=== PATIENT | female | born 1990 | race Caucasian/White ===

== ENCOUNTER 2025-03-06 07:13 | Inpatient (IN) | payer OTHER, SELFPAY ==
[2025-03-06] VITALS (44 sets, daily range): BP systolic 118–169; BP diastolic 73–99; PULSE 72–103; RESP 16–18; TEMP 36.4–37.2; O2SAT 95–100; BMI 29.5
--- OUTSIDE RECORDS SUMMARY | 2025-03-06 07:20 | XMS RPT_ITS | CCD ---
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 Address: [address] [place] [address] Performed By: #### 5 7021-8 #### [facility] CLIA [id number] [address] [place] [address] [place] Monocytes/100 WBC (Bld) 5.3 % Normal [facility] Comment on above: Order Comment: Speci men Type: BLOOD SPECIMEN Ordering Facility: [facility] Address: [address] [place] [address] Performed By: #### 5 7021-8 #### [facility] CLIA [id number] [address] [place] [address] [place] Neutrophils (Bld) [#/Vol] 4.48 10*3/uL Normal 1.45-7.50 [facility] Comment on above: Order Comment: Speci men Type: BLOOD SPECIMEN Ordering Facility: [facility] Address: [address] [place] [address] Performed By: #### 5 7021-8 #### [facility] CLIA [id number] [address] [place] [address] [place] Neutrophils/100 WBC (Bld) 76.1 % Normal [facility] Comment on above: Order Comment: Speci men Type: BLOOD SPECIMEN Ordering Facility: [facility] Address: [address] [place] [address] Performed By: #### 5 7021-8 #### [facility] CLIA [id number] [address] [place] [address] [place] Nucleated RBC (Bld) [#/Vol] 10*3/uL Normal <0.01 [facility] Comment on above: Order Comment: Speci men Type: BLOOD SPECIMEN Ordering Facility: [facility] Address: [address] [place] [address] Performed By: #### 5 7021-8 #### [facility] CLIA [id number] [address] [place] [address] [place] Nucleated RBC/100 WBC (Bld) [Ratio] 0.0 /100 WBC Normal [facility] Comment on above: Order Comment: Speci men Type: BLOOD SPECIMEN Ordering Facility: [facility] Address: [address] [place] [address] Performed By: #### 5 7021-8 #### [facility] CLIA [id number] [address] [place] [address] [place] Platelet mean volume (Bld) [Entitic vol] 8.8 fL Low 9.0-12.7 [facility] Comment on above: Order Comment: Speci men Type: BLOOD SPECIMEN Ordering Facility: [facility] Address: [address] [place] [address] Performed By: #### 5 7021-8 #### [facility] CLIA [id number] [address] [place] [address] [place] Platelets (Bld) [#/Vol] 182 10*3/uL Normal 150-400 [facility] Comment on above: Order Comment: Speci men Type: BLOOD SPECIMEN Ordering Facility: [facility] Address: [address] [place] [address] Performed By: #### 5 7021-8 #### [facility] CLIA [id number] [address] [place] [address] [place] RBC (Bld) [#/Vol] 3.70 10*6/uL Low 3.90-5.20 [facility] Comment on above: Order Comment: Speci men Type: BLOOD SPECIMEN Ordering Facility: [facility] Address: [address] [place] [address] Performed By: #### 5 7021-8 #### [facility] CLIA [id number] [address] [place] [address] [place] WBC (Bld) [#/Vol] 5.89 10*3/uL Normal 3.70-11.00 [facility] Comment on above: Order Comment: Speci men Type: BLOOD SPECIMEN Ordering Facility: [facility] Address: [address] [place] [address] Performed By: #### 5 7021-8 #### [facility] CLIA [id number] [address] [place] [address] [place] GESTATIONAL GLUCOSE SCREEN, 1-HOUR, 50 GRAM, NON-FASTINGon 12-19-2024 Glucose [Mass/Vol] 90 mg/dL Normal 74-134 [facility] Comment on above: Order Comment: Speci men Type: BLOOD SPECIMEN Ordering Facility: [facility] Address: [address] [place] [address] Result Comment: Amer [place] Congress of Obstetricians and Gynecologists (Bennie/Wilfredo) guidelines state a gestational diabetes mellitus positive screen is made, in women not previously diagnosed with overt diabetes, when the 1 hr plasma glucose level is equal to or above 140 mg/dL. [facility] C2 Tactical Analysis Technician and [facility] [place] recommends a 135 mg/dL cutoff. Performed By: #### G LTGST #### [facility] CLIA [id number] [address] [place], [place] [address] [place] Reagin and Treponema pallidu m IgG and IgM [Interp]on 12-19-2024 T. pallidum IgG+IgM IA Ql (S) Non-Reactive Normal Nonreactive [facility] Comment on above: Order Comment: Speci men Type: BLOOD SPECIMEN Ordering Facility: [facility] Address: [address] [place] [address] Performed By: #### 3 1201-7, 5195-3, 96270-2 #### [facility] CLIA [id number] [address] [place] [address] [place] Reagin+T pallidum IgG+IgM Se rPl-Impon 12-19-2024 Reagin and Treponema pallidum IgG and IgM [Interp] Cannot exclude recent Treponemal infection if specimen collected within 7-10 days after appearance of suspect lesions or 2-3 weeks after an exposure. Clinical correlation is required. Normal [facility] Comment on above: Order Comment: Speci men Type: BLOOD SPECIMEN Ordering Facility: [facility] Address: [address] [place] [address] Performed By: #### 3 1201-7, 5195-3, 33141-4 #### [facility] CLIA [id number] [address] [place] [address] [place] Bacteria Ur Culton 5 Bacteria identified Cx Nom (U) ORGANISM ID: 1 50,000-<100,000 CFU/ml Normal urogenital nick Normal [facility] Comment on above: Performed By: #### 3 1201-7, 5195-3, 90517-1 #### [facility] CLIA [id number] [address] [place] [address] [place] C. trachomatis+N. gonorrhoea e DNA LYNETTE+probe Ql (Unsp spec)on 11-06-2024 C. trachomatis rRNA LYNETTE+probe Ql (Unsp spec) Not detected Normal Not detected [facility] Comment on above: Order Comment: Speci men Type: SWAB Ordering Facility: [facility] Address: [address] [place] [address] Performed By: #### 3 6902-5, TRVAMP #### [facility] CLIA [id number] [address] [place] [address] [place] N. gonorrhoeae rRNA LYNETTE+probe Ql (Unsp spec) Not detected Normal Not detected [facility] Comment on above: Order Comment: Speci men Type: SWAB Ordering Facility: [facility] Address: [address] [place] [address] Performed By: #### 3 6902-5, TRVAMP #### [facility] CLIA [id number] [address] [place] [address] [place] CBC W Auto Differential pane l (Bld)on 11-06-2024 Basophils (Bld) [#/Vol] 10*3/uL Normal <0.11 [facility] Comment on above: Order Comment: Speci men Type: BLOOD SPECIMEN Ordering Facility: [facility] Address: [address] [place] [address] Performed By: #### 5 7021-8 #### [facility] CLIA [id number] [address] [place] [address] [place] Basophils/100 WBC (Bld) 0.4 % Normal [facility] Comment on above: Order Comment: Speci men Type: BLOOD SPECIMEN Ordering Facility: [facility] Address: [address] [place] [address] Performed By: #### 5 7021-8 #### [facility] CLIA [id number] [address] [place] [address] [place] Differential cell count method Nom (Bld) Auto Normal [facility] Comment on above: Order Comment: Speci men Type: BLOOD SPECIMEN Ordering Facility: [facility] Address: [address] [place] [address] Performed By: #### 5 7021-8 #### [facility] CLIA [id number] [address] [place] [address] [place] Eosinophils (Bld) [#/Vol] 0.04 10*3/uL Normal <0.46 [facility] Comment on above: Order Comment: Speci men Type: BLOOD SPECIMEN Ordering Facility: [facility] Address: [address] [place] [address] Performed By: #### 5 7021-8 #### [facility] CLIA [id number] [address] [place] [address] [place] Eosinophils/100 WBC (Bld) 0.7 % Normal [facility] Comment on above: Order Comment: Speci men Type: BLOOD SPECIMEN Ordering Facility: [facility] Address: [address] [place] [address] Performed By: #### 5 7021-8 #### [facility] CLIA [id number] [address] [place] [address] [place] Erythrocyte distribution width (RBC) [Ratio] 12.6 % Normal 11.5-15.0 [facility] Comment on above: Order Comment: Speci men Type: BLOOD SPECIMEN Ordering Facility: [facility] Address: [address] [place] [address] Performed By: #### 5 7021-8 #### [facility] CLIA [id number] [address] [place] [address] [place] Hematocrit (Bld) [Volume fraction] 39.9 % Normal 36.0-46.0 [facility] Comment on above: Order Comment: Speci men Type: BLOOD SPECIMEN Ordering Facility: [facility] Address: [address] [place] [address] Performed By: #### 5 7021-8 #### [facility] CLIA [id number] [address] [place] [address] [place] Hemoglobin (Bld) [Mass/Vol] 13.5 g/dL Normal 11.5-15.5 [facility] Comment on above: Order Comment: Speci men Type: BLOOD SPECIMEN Ordering Facility: [facility] Address: [address] [place] [address] Performed By: #### 5 7021-8 #### [facility] CLIA [id number] [address] [place] [address] [place] Immature granulocytes (Bld) [#/Vol] 10*3/uL Normal <0.10 [facility] Comment on above: Order Comment: Speci men Type: BLOOD SPECIMEN Ordering Facility: [facility] Address: [address] [place] [address] Performed By: #### 5 7021-8 #### [facility] CLIA [id number] [address] [place] [address] [place] Immature granulocytes/100 WBC (Bld) 0.4 % Normal [facility] Comment on above: Order Comment: Speci men Type: BLOOD SPECIMEN Ordering Facility: [facility] Address: [address] [place] [address] Performed By: #### 5 7021-8 #### [facility] CLIA [id number] [address] [place] [address] [place] Lymphocytes (Bld) [#/Vol] 1.13 10*3/uL Normal 1.00-4.00 [facility] Comment on above: Order Comment: Speci men Type: BLOOD SPECIMEN Ordering Facility: [facility] Address: [address] [place] [address] Performed By: #### 5 7021-8 #### [facility] CLIA [id number] [address] [place] [address] [place] Lymphocytes/100 WBC (Bld) 21.0 % Normal [facility] Comment on above: Order Comment: Speci men Type: BLOOD SPECIMEN Ordering Facility: [facility] Address: [address] [place] [address] Performed By: #### 5 7021-8 #### [facility] CLIA [id number] [address] [place] [address] [place] MCH (RBC) [Entitic mass] 30.1 pg Normal 26.0-34.0 [facility] Comment on above: Order Comment: Speci men Type: BLOOD SPECIMEN Ordering Facility: [facility] Address: [address] [place] [address] Performed By: #### 5 7021-8 #### [facility] CLIA [id number] [address] [place] [address] [place] MCHC (RBC) [Mass/Vol] 33.8 g/dL Normal 30.5-36.0 [facility] Comment on above: Order Comment: Speci men Type: BLOOD SPECIMEN Ordering Facility: [facility] Address: [address] [place] [address] Performed By: #### 5 7021-8 #### [facility] CLIA [id number] [address] [place] [address] [place] MCV (RBC) [Entitic vol] 89.1 fL Normal 80.0-100.0 [facility] Comment on above: Order Comment: Speci men Type: BLOOD SPECIMEN Ordering Facility: [facility] Address: [address] [place], [place] [address] Performed By: #### 5 7021-8 #### [id number] [address] [place] [address] [place] Monocytes (Bld) [#/Vol] 0.33 10*3/uL Normal <0.87 [facility] Comment on above: Order Comment: Speci men Type: BLOOD SPECIMEN Ordering Facility: [facility] Address: [address] [place] [address] Performed By: #### 5 7021-8 #### [facility] CLIA [id number] [address] [place] [address] [place] Monocytes/100 WBC (Bld) 6.1 % Normal [facility] Comment on above: Order Comment: Speci men Type: BLOOD SPECIMEN Ordering Facility: [facility] Address: [address] [place] [address] Performed By: #### 5 7021-8 #### [facility] CLIA [id number] [address] [place] [address] [place] Neutrophils (Bld) [#/Vol] 3.84 10*3/uL Normal 1.45-7.50 [facility] Comment on above: Order Comment: Speci men Type: BLOOD SPECIMEN Ordering Facility: [facility] Address: [address] [place] [address] Performed By: #### 5 7021-8 #### [facility] CLIA [id number] [address] [place] [address] [place] Neutrophils/100 WBC (Bld) 71.4 % Normal [facility] Comment on above: Order Comment: Speci men Type: BLOOD SPECIMEN Ordering Facility: [facility] Address: [address] [place] [address] Performed By: #### 5 7021-8 #### [facility] CLIA [id number] [address] [place] [address] [place] Nucleated RBC (Bld) [#/Vol] 10*3/uL Normal <0.01 [facility] Comment on above: Order Comment: Speci men Type: BLOOD SPECIMEN Ordering Facility: [facility] Address: [address] [place] [address] Performed By: #### 5 7021-8 #### [facility] CLIA [id number] [address] [place] [address] [place] Nucleated RBC/100 WBC (Bld) [Ratio] 0.0 /100 WBC Normal [facility] Comment on above: Order Comment: Speci men Type: BLOOD SPECIMEN Ordering Facility: [facility] Address: [address] [place] [address] Performed By: #### 5 7021-8 #### [facility] CLIA [id number] [address] [place] [address] [place] Platelet mean volume (Bld) [Entitic vol] 8.8 fL Low 9.0-12.7 [facility] Comment on above: Order Comment: Speci men Type: BLOOD SPECIMEN Ordering Facility: [facility] Address: [address] [place] [address] Performed By: #### 5 7021-8 #### [facility] CLIA [id number] [address] [place] [address] [place] Platelets (Bld) [#/Vol] 219 10*3/uL Normal 150-400 [facility] Comment on above: Order Comment: Speci men Type: BLOOD SPECIMEN Ordering Facility: [facility] Address: [address] [place] [address] Performed By: #### 5 7021-8 #### [facility] CLIA [id number] [address] [place] [address] [place] RBC (Bld) [#/Vol] 4.48 10*6/uL Normal 3.90-5.20 [facility] Comment on above: Order Comment: Speci men Type: BLOOD SPECIMEN Ordering Facility: [facility] Address: [address] [place] [address] Performed By: #### 5 7021-8 #### [facility] CLIA [id number] [address] [place] [address] [place] WBC (Bld) [#/Vol] 5.38 10*3/uL Normal 3.70-11.00 [facility] Comment on above: Order Comment: Speci men Type: BLOOD SPECIMEN Ordering Facility: [facility] Address: [address] [place] [address] Performed By: #### 5 7021-8 #### [facility] CLIA [id number] [address] [place] [address] [place] HBV surface Ag Ser Qlon 10-26 HBV surface Ag Ql (S) Negative Normal Negative [facility] Comment on above: Order Comment: Speci men Type: BLOOD SPECIMEN Ordering Facility: [facility] Address: [address] [place] [address] Performed By: #### 3 1201-7, 5195-3, 84453-3 #### [facility] CLIA [id number] [address] [place] [address] [place] HCV Ab Ser Qlon 11-06-2024 HCV Ab Ql (S) Negative Normal Negative [facility] Comment on above: Order Comment: Speci men Type: BLOOD SPECIMEN Ordering Facility: [facility] Address: [address] [place] [address] Result Comment: The result suggests no evidence of infection with Hepatitis C virus. Should recent infection be suspected, repeat testing may be considered 4-6 weeks after this draw. Performed By: #### 3 1201-7, 5195-3, 99117-9 #### [facility] CLIA [id number] [address] [place] [address] [place] HIV 1+2 Ab IA Qlon HIV 1 and 2 Ab IA.rapid Nom (S/P/Bld) Normal [facility] Comment on above: Order Comment: Speci men Type: BLOOD SPECIMEN Ordering Facility: [facility] Address: [address] [place] [address] Result Comment: Test not indicated. Performed By: #### 3 1201-7, 5195-3, 50681-7 #### [facility] CLIA [id number] [address] [place] [address] [place] HIV 1+2 Ab+HIV1 p24 Ag IA Ql Non-Reactive Normal Nonreactive [facility] Comment on above: Order Comment: Speci men Type: BLOOD SPECIMEN Ordering Facility: [facility] Address: [address] [place] [address] Performed By: #### 3 1201-7, 5195-3, 39825-5 #### [facility] CLIA [id number] [address] [place] [address] [place] HIV immunoassay testing algorithm interpretation (S/P/Bld) [Interp] Normal [facility] Comment on above: Order Comment: Speci men Type: BLOOD SPECIMEN Ordering Facility: [facility] Address: [address] [place] [address] Result Comment: No e vidence of HIV-1 or HIV-2 infection. Should recent infection be suspected, repeat testing may be considered 2-3 weeks after this draw. [place] Rev. Code 3701.243(E): This information has been disclosed to you from confidential records protected from disclosure by state law. You shall make no further disclosure of this information without the specific, written, and informed release of the individual to whom it pertains or as otherwise permitted by state law. A general authorization for the release of medical or other information is not sufficient for the purpose of the release of HIV test results or diagnoses. Performed By: #### 3 1201-7, 5195-3, 23740-3 #### [facility] CLIA [id number] [address] [place] [address] [place] HbA1c (Bld)on 11-06-2024 Average glucose Estimated from glycated hemoglobin (Bld) [Mass/Vol] 97 mg/dL [facility] Comment on above: eAG: (Estimated aver age glucose) is a calculated value from HgbA1c and is credit resolution representative of the average blood glucose level in the last 2-3 month period. HbA1c (Bld) [Mass fraction] 5 % 4.3 - 5.6 % [facility] Comment on above: [place] Diabetes [employer] sociation guidelines indicate that patients with HgbA1c in the range 5.7-6.4% are at increased risk for development of diabetes, and intervention by lifestyle modification may be beneficial. HgbA1c greater or equal to 6.5% is considered diagnostic of diabetes. [facility] Average glucose Estimated from glycated hemoglobin (Bld) [Mass/Vol] 97 mg/dL Normal [facility] Comment on above: Order Comment: Specjaziel crawford Type: BLOOD SPECIMEN Ordering Facility: [facility] Address: [address] [place] [address] Result Comment: eAG: (Estimated average glucose) is a calculated value from HgbA1c and is credit resolution representative of the average blood glucose level in the last 2-3 month period. Performed By: #### 3 1201-7, 5195-3, 98277-7 #### [facility] CLIA [id number] [address] [place] [address] [place] HbA1c (Bld) [Mass fraction] 5.0 % Normal 4.3-5.6 [facility] Comment on above: Order Comment: Graham crawford Type: BLOOD SPECIMEN Ordering Facility: [facility] Address: [address] [place] [address] Result Comment: [employer] [place] Diabetes Association guidelines indicate that patients with HgbA1c in the range 5.7-6.4% are at increased risk for development of diabetes, and intervention by lifestyle modification may be beneficial. HgbA1c greater or equal to 6.5% is considered diagnostic of diabetes. Performed By: #### 3 1201-7, 5195-3, 28719-1 #### [facility] CLIA [id number] [address] [place] [address] [place] [id number] PLUSon 11-06-2024 Cell-free DNA./Cell-free DNA.total Dosage of chromosome-specific cfDNA (cfDNA) [Molar fraction] 15% Normal [facility] Comment on above: Order Comment: Speci men Type: BLOOD SPECIMEN Ordering Facility: [facility] Address: [address] [place] [address] Performed By: #### M AT21 #### [facility] CLIA [id number] [address] [place] [address] Chr 13+18+21+X+Y aneuploidy Dosage of chromosome-specific cfDNA Ql (cfDNA) Negative Normal [facility] Comment on above: Order Comment: Speci men Type: BLOOD SPECIMEN Ordering Facility: [facility] Address: [address] [place] [address] Performed By: #### M AT21 #### [facility] CLIA [id number] [address] [place] [address] 10166 Chr 21 trisomy Dosage of chromosome-specific cfDNA Ql (cfDNA) Negative Normal [facility] Comment on above: Order Comment: Speci men Type: BLOOD SPECIMEN Ordering Facility: [facility] Address: [address] [place] [address] Performed By: #### M AT21 #### [facility] CLIA [id number] [address] [place] [address] Chr X and Y aneuploidy risk Sequencing Ql (cfDNA) [Interp] Not detected Normal [facility] Comment on above: Order Comment: Speci men Type: BLOOD SPECIMEN Ordering Facility: [facility] Address: [address] [place] [address] Result Comment: Not Detected Not Detected Performed By: #### M AT21 #### [facility] CLIA [id number] [address] [place] [address]353 Citation Jaxson (Reference lab test) Comment Normal [facility] Comment on above: Order Comment: Speci men Type: BLOOD SPECIMEN Ordering Facility: [facility] Address: [address] [place] [address] Result Comment: 1. P carlos manuel VERDUGO, et al. Alida Med. 2012;14(3):296-305. 2. Tk DIOP et al. Prenat Diag. 2013;33(6):591-597. 3. Luiz C, et al. Clin Chem. 2015 Sep;61(4):608-616. 4. Elder VERDUGO et al. Alida Med. 2011;13(11):913-920. 5. ACOG/[facility] Practice Bulletin No. 226, Mar 2020. Performed By: #### M AT21 #### [facility] CLIA [id number] [address] [place] [address] Gestational age Estimated from conception date Segura Normal [facility] Comment on above: Order Comment: Speci men Type: BLOOD SPECIMEN Ordering Facility: [facility] Address: [address] [place] [address] Performed By: #### M AT21 #### [facility] CLIA [id number] [address] [place] [address] GESTATIONALAGE AGE > OR = 9W Yes Normal [facility] Comment on above: Order Comment: Speci yvette Type: BLOOD SPECIMEN Ordering Facility: [facility] Address: [address] [place] [address] Performed By: #### M AT21 #### [facility] CLIA [id number] [address] [place] [address] Laboratory comment Jaxson (Report) Comment Normal [facility] Comment on above: Order Comment: Graham crawford Type: BLOOD SPECIMEN Ordering Facility: [facility] Address: [address] [place] [address] Result Comment: The MaterniT(R) 21 PLUS laboratory-developed test (LDT) analyzes circulating cell-free DNA from a maternal blood sample. This test is used for screening purposes and not diagnostic. Clinical correlation is recommended. Validation data on twin pregnancies is limited and the ability of this test to detect aneuploidy in higher multiple gestations has not yet been validated. Performed By: #### M AT21 #### [facility] CLIA [id number] [address] [place] [address] director of strategic communications name Nom (Provider) Comment Normal [facility] Comment on above: Order Comment: Speci yvette Type: BLOOD SPECIMEN Ordering Facility: [facility] Address: [address] [place] [address] Result Comment: This specimen showed an expected representation of chromosome 21, 18 and 13 material. Clinical correlation is suggested. Comment Jose Alberto Rios MD, PhD, Director, [employer] Performed By: #### M AT21 #### [facility] CLIA [id number] [address] [place] [address] LIMITATIONS OF THE TEST Comment Normal [facility] Comment on above: Order Comment: Speci men Type: BLOOD SPECIMEN Ordering Facility: [facility] Address: [address] [place] [address] Result Comment: Christopher viveros the results of these tests are highly reliable, discordant results, including inaccurate sex prediction, may occur due to placental, maternal, or mosaicism or neoplasm; vanishing twin; prior maternal organ transplant; or other causes. These tests are screening tests and not diagnostic; they do not replace the accuracy and precision of diagnosis with CVS or amniocentesis. A patient with a positive test result should be referred for genetic counseling and offered invasive diagnosis for confirmation of test results.[5] The results of this testing, including the benefits and limitations, should be discussed with a qualified healthcare provider. management decisions, including termination of the , should not be based on the results of these tests alone. The healthcare provider is responsible for the use of this information in the management of their patient. Sex chromosomal aneuploidies are not reportable for known multiple gestations. A negative result does not ensure an unaffected nor does it exclude the possibility of other chromosomal abnormalities or defects which are not a part of these tests. An uninformative result may be reported, the causes of which may include, but are not limited to, insufficient sequencing coverage, noise or artifacts in the region, amplification or sequencing bias, or insufficient fraction. These tests are not intended to identify pregnancies at risk for neural tube defects or ventral wall defects. Testing for whole chromosome abnormalities (including sex chromosomes) and for subchromosomal abnormalities could lead to the potential discovery of both and maternal genomic abnormalities that could have major, minor, or no, clinical significance. Evaluating the significance of a positive or a non-reportable result may involve both invasive testing and additional studies on the mother. Such investigations may lead to a diagnosis of maternal chromosomal or subchromosomal abnormalities, which on occasion may be associated with benign or malignant maternal neoplasms. These tests may not accurately identify triploidy, balanced rearrangements, or the precise location of subchromosomal duplications or deletions; these may be detected by diagnosis with CVS or amniocentesis. The ability to report results may be impacted by maternal BMI, maternal weight, maternal systemic lupus erythematosus (SLE) and/or by certain pharmaceutical agents such as low molecular weight heparin (for example: Lovenox(R), Xaparin(R), Clexane(R) and Fragmin(R)). Performed By: #### M AT21 #### [facility] CLIA [id number] [address] [place] [address] Monosomy X risk Dosage of chromosome-specific cfDNA Ql (Plasma cell-free+WBC DNA) [Interp] Not detected Normal [facility] Comment on above: Order Comment: Graham crawford Type: BLOOD SPECIMEN Ordering Facility: [facility] Address: [address] [place] [address] Performed By: #### M AT21 #### [facility] CLIA [id number] [address] [place] [address] NEGATIVE PREDICTIVE VALUE Note Normal [facility] Comment on above: Order Comment: Graham crawford Type: BLOOD SPECIMEN Ordering Facility: [facility] Address: [address] [place] [address] Result Comment: The Negative Predictive Value (NPV) for trisomy 21, 18, and 13 is greater than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 08:34-0400 Body mass index (BMI) [Ratio] 26.34 kg/m2 Tamera Velazco ELECTRON BEAM PHOTO MASK TECHNICIAN.CNM Work Phone: [facility] 11-06-2024 08:34-0400 Body weight 72.58 kg Tamera Simonharshad ELECTRON BEAM PHOTO MASK TECHNICIAN.CNM Work Phone: [facility] 11-06-2024 08:34-0400 Diastolic blood pressure 72 mm[Hg] Tamera Simonharshad ELECTRON BEAM PHOTO MASK TECHNICIAN.CNM Work Phone: [facility] 11-06-2024 08:34-0400 Systolic blood pressure 116 mm[Hg] Tamera Velazco ELECTRON BEAM PHOTO MASK TECHNICIAN.CNM Work Phone: [facility] 08-09-2024 09:30-0500 Diastolic blood pressure 72 mm[Hg] Nathan Samaniego PA-C Work Phone: [facility] 08-09-2024 09:30-0500 Heart rate 66 /min Nathan Samaniego PA-C Work Phone: [facility] 08-09-2024 09:30-0500 SaO2% (BldA) [Mass fraction] 98 % Nathan Samaniego PA-C Work Phone: [facility] 08-09-2024 09:30-0500 Systolic blood pressure 114 mm[Hg] Nathan Samaniego PA-C Work Phone: [facility] 12-13-2023 13:50-0400 Body height 165.1 cm Lisa Dias MD Work Phone: [facility] 12-13-2023 13:50-0400 Body mass index (BMI) [Ratio] 25.23 kg/m2 Lisa Dias MD Work Phone: [facility] 12-13-2023 13:50-0400 Body weight 68.77 kg Lisa Dias MD Work Phone: [facility] 12-13-2023 13:50-0400 Diastolic blood pressure 76 mm[Hg] Lisa Dias MD Work Phone: [facility] 12-13-2023 13:50-0400 Heart rate 71 /min Lisa Dias MD Work Phone: [facility] 12-13-2023 13:50-0400 Systolic blood pressure 111 mm[Hg] Lisa Dias MD Work Phone: [facility] 01-04-2023 09:43-0400 Body mass index (BMI) [Ratio] 24.26 kg/m2 Nathan REYEZ-C Work Phone: [facility] 01-04-2023 09:43-0400 Body weight 66.13 kg Nathan REYEZ-C Work Phone: [facility] 01-04-2023 09:43-0400 Diastolic blood pressure 72 mm[Hg] Nathan Samaniego PA-C Work Phone: [facility] 01-04-2023 09:43-0400 Heart rate 63 /min Nathan Samaniego PA-C Work Phone: [facility] 01-04-2023 09:43-0400 Respiratory rate 16 /min Nathan Samaniego PA-C Work Phone: [facility] 01-04-2023 09:43-0400 SaO2% (BldA) [Mass fraction] 98 % Nathan Samaniego PA-C Work Phone: [facility] 01-04-2023 09:43-0400 Systolic blood pressure 113 mm[Hg] Nathan Samaniego PA-C Work Phone: [facility] 10-21-2022 10:53-0400 Body height 165.1 cm Subhash Emerson MD Work Phone: [facility] 10-21-2022 10:53-0400 Body mass index (BMI) [Ratio] 26.26 kg/m2 Subhash Emerson MD Work Phone: [facility] 10-21-2022 10:53-0400 Body weight 71.58 kg Subhash Emerson MD Work Phone: [facility] 10-21-2022 10:53-0400 Diastolic blood pressure 85 mm[Hg] Subhash Emerson MD Work Phone: [facility] 10-21-2022 10:53-0400 Heart rate 69 /min Subhash Emerson MD Work Phone: [facility] 10-21-2022 10:53-0400 SaO2% (BldA) [Mass fraction] 98 % Subhash Emerson MD Work Phone: [facility] 10-21-2022 10:53-0400 Systolic blood pressure 138 mm[Hg] Subhash Emerson MD Work Phone: [facility] 10-10-2022 19:44-0400 Diastolic blood pressure 80 mm[Hg] No Pcp Required [facility] 10-10-2022 19:44-0400 Heart rate 83 /min No Pcp Required [facility] 10-10-2022 19:44-0400 Respiratory rate 18 /min No Pcp Required [facility] 10-10-2022 19:44-0400 SaO2% (BldA) [Mass fraction] 98 % No Pcp Required [facility] 10-10-2022 19:44-0400 Systolic blood pressure 137 mm[Hg] No Pcp Required [facility] 10-10-2022 18:23-0400 Body height 162.5 cm No Pcp Required [facility] 10-10-2022 18:23-0400 Body temperature 98.78 [degF] No Pcp Required [facility] 10-10-2022 18:23-0400 Body weight 63.5 kg No Pcp Required [facility] 11-13-2021 14:58-0400 Body mass index (BMI) [Ratio] 25.29 kg/m2 Lisa Dias MD Work Phone: [facility] 11-13-2021 14:58-0400 Body weight 68.95 kg Lisa Dias MD Work Phone: [facility] 11-13-2021 14:58-0400 Diastolic blood pressure 81 mm[Hg] Lisa Dias MD Work Phone: [facility] 11-13-2021 14:58-0400 Heart rate 65 /min Lisa Dias MD Work Phone: [facility] 11-13-2021 14:58-0400 Systolic blood pressure 133 mm[Hg] iLsa Dias MD Work Phone: [facility] 09-09-2020 13:19-0400 BMI (Body Mass Index) 24.79 kg/m2 [facility] 09-09-2020 13:19-0400 Body weight 67.59 kg [facility] 09-09-2020 13:19-0400 BP [facility] 79 [facility] 13:19-0400 BP Systolic 128 mm[facility]Hg[facility] 13:19-0400 Height 165.1 cm [facility] 09-09-2020 13:19-0400 Pulse (Heart Rate) 69 /min [facility] 09-08-2019 09:08-0400 BMI (Body Mass Index) 25.64 kg/m2 [facility] 09-08-2019 09:08-0400 Body weight 69.9 kg [facility] 09-08-2019 09:08-0400 BP Diastolic 80 mm[Hg] [facility] 09-08-2019 09:08-0400 BP Systolic 135 mm[Hg] [facility] 09-08-2019 09:08-0400 Height 165.1 cm [facility] 09-08-2019 09:08-0400 Pulse (Heart Rate) 84 /min [facility] 07-27-2019 16:38-0500 BMI (Body Mass Index) 25.79 kg/m2 [facility] 07-27-2019 16:38-0500 Body Temperature 98.8 [degF] [facility] 07-27-2019 16:38-0500 Body weight 70.31 kg [facility] 07-27-2019 16:38-0500 BP Diastolic 76 mm[Hg] [facility] 07-27-2019 16:38-0500 BP Systolic 120 mm[Hg] [facility] 07-27-2019 16:38-0500 Height 165.1 cm [facility] 07-27-2019 16:38-0500 Pulse (Heart Rate) 67 /min [facility] 07-27-2019 16:38-0500 Pulse Oximetry 98 % [facility] 07-27-2019 16:38-0500 Respiratory Rate 16 /min [facility] 02-10-2018 16:19-0400 BMI (Body Mass Index) 24.13 kg/m2 [facility] 16:19-0400 Body Temperature 98.4 [degF[facility]-10[facility] 16:19-0400 BP Di[facility] 77 mm[facility]Hg[facility]-10[facility] 16:19-0400 BP Systolic 118 mm[Hg] Cheri Jim[facility]nez [facility] 02-10-2018 16:19-0400 Height 165.1 cm Cheri Jiménez [facility] 02-10-2018 16:19-0400 Pulse (Heart Rate) 59 /[facility] 16:19-0400 Pulse Oximetry 96 % Cheri Jiménez [facility] 02-10-2018 16:19-0400 Respiratory Rate 16 /min Cheri Jiménez [facility] 02-10-2018 16:19-0400 Weight 65.77 kg Cheri Jiménez [facility] Encounters Encounter Date Encounter Type Care Provider Facility Start: 03-06-2025 ambulatory Subhash Emerson Facility:[facility] Start: 03-02-2025 End: 03-02-2025 Patient encounter procedure Cyndy Egan MD Work Phone: OB/Gynecology Comment on above: Multigravida of adva nced maternal age in third trimester (HCC) (Primary Dx); 37 weeks gestation of (HCC); Encounter for supervision of high risk in third trimester, antepartum (HCC); Poor growth affecting management of mother in third trimester, fetus 1 of multiple gestation (HCC) Start: 03-02-2025 End: 03-02-2025 ambulatory MARIA ELENA CHAVIRA Facility:[facility] Start: 02-28-2025 End: 02-28-2025 ambulatory Candida Pulido MD Work Phone: OB/Gynecology Comment on above: FMLA paperwork Start: 02-28-2025 End: 02-28-2025 E-mail encounter from caregiver Candida Pulido MD Work Phone: OB/Gynecology Start: 02-27-2025 End: 02-27-2025 Patient encounter procedure [employer] [facility] Comment on above: growth restric tion antepartum (HCC) (Primary Dx); 37 weeks gestation of (HCC) Encounter for superv ision of high risk in third trimester, antepartum (HCC) (Primary Dx); Multigravida of advanced maternal age in third trimester (HCC); Late care (HCC); 37 weeks gestation of (HCC); Poor growth affecting management of mother in third trimester, single or unspecified fetus (HCC) Start: 02-27-2025 End: 02-27-2025 ambulatory ACACIA SUAREZ Facility:[facility] Start: 02-21-2025 End: 02-21-2025 Patient encounter procedure Candida Pulido MD Work Phone: OB/Gynecology Comment on above: Encounter for superv ision of high risk in third trimester, antepartum (HCC) (Primary Dx); Uterine size-date discrepancy, third trimester (HCC); 36 weeks gestation of (HCC); Multigravida of advanced maternal age in third trimester (HCC) Multigravida of adva nced maternal age in third trimester (HCC) (Primary Dx); Uterine size-date discrepancy, third trimester (HCC); Late care (HCC); Intrauterine growth restriction (IUGR) affecting care of mother, third trimester, single gestation (HCC) Start: 02-21-2025 End: 02-21-2025 ambulatory ACACIA SUAREZ Facility:[facility] Start: 02-12-2025 End: 02-12-2025 Patient encounter procedure Acacia Suarez APRN.CNM Work Phone: OB/Gynecology Comment on above: Encounter for superv ision of high risk in third trimester, antepartum (HCC) (Primary Dx); 34 weeks gestation of (HCC); Multigravida of advanced maternal age in third trimester (HCC); Late care (HCC); Uterine size-date discrepancy, third trimester (HCC) Start: 02-12-2025 End: 02-12-2025 ambulatory Acacia Suarez APRN.CNM Work Phone: OB/Gynecology Comment on above: Contact for janelle mancilla ernesto Start: 01-29-2025 End: 01-29-2025 [facility] ACACIA SUAREZ Facility:[facility] Start: 01-24-2025 End: 01-24-2025 Patient encounter procedure [employer] [facility] Comment on above: Encounter for ultras ound to check growth (HCC) (Primary Dx); Multigravida of advanced maternal age in third trimester (HCC); Uterine size-date discrepancy, third trimester (HCC); 32 weeks gestation of (HCC) Start: 01-24-2025 End: 01-24-2025 ambulatory SHANE FERGUSON Facility:[facility] Start: 01-15-2025 End: 01-15-2025 Patient encounter procedure Shane Ferguson APRN.DATA WAREHOUSING MANAGER Work Phone: OB/Gynecology Comment on above: Encounter for superv ision of high risk in third trimester, antepartum (HCC) (Primary Dx); 30 weeks gestation of (HCC); Multigravida of advanced maternal age in third trimester (HCC); Uterine size-date discrepancy, third trimester (HCC) Start: 01-15-2025 End: 01-15-2025 ambulatory SHANE FERGUSON Facility:[facility] Start: 01-01-2025 End: 01-01-2025 Patient encounter procedure Genie Wesley MD Work Phone: OB/Gynecology Comment on above: 28 weeks gestation o f (HCC) (Primary Dx); Encounter for supervision of high risk in third trimester, antepartum (HCC); Late care (HCC); Multigravida of advanced maternal age in third trimester (HCC) Start: 01-01-2025 End: 01-01-2025 ambulatory GENIE WESLEY Facility:[facility] Start: 12-21-2024 End: 02-20-2025 Follow-up encounter Tamera Velazco APRN.CNM Work Phone: OB/Gynecology Start: 12-19-2024 End: 12-19-2024 Patient encounter procedure Acacia Suarez APRN.CNM Work Phone: OB/Gynecology Comment on above: Encounter for superv ision of high risk in second trimester, antepartum (HCC) (Primary Dx); 27 weeks gestation of (HCC); Multigravida of advanced maternal age in second trimester (HCC); Late care (HCC); Multigravida of advanced maternal age in third trimester (HCC) Start: 12-19-2024 End: 12-19-2024 ambulatory TAMERA VELAZCO Facility:[facility] Start: 11-16-2024 End: 11-16-2024 ambulatory TAMERA VELAZCO Facility:[facility] Start: 11-08-2024 End: 01-08-2025 Follow-up encounter Candida Pulido MD Work Phone: OB/Gynecology Start: 11-06-2024 End: 11-06-2024 ambulatory TAMERA VELAZCO Facility:[facility] Start: 11-06-2024 End: 11-06-2024 Patient encounter procedure Tamera Velazco ELECTRON BEAM PHOTO MASK TECHNICIAN.CNM Work Phone: OB/Gynecology Comment on above: with uncer tain dates in first trimester (HCC) (Primary Dx); 20 weeks gestation of (HCC); Screening examination for STD (sexually transmitted disease); Multigravida of advanced maternal age in second trimester ([facility]); Encounter for supervision of high risk in second trimester, antepartum ([facility]); Late care ([facility]) Start: 11-06-2024 End: 11-06-2024 ambulatory TAMERA VELAZCO Facility:[facility] Start: 11-03-2024 End: 11-03-2024 E-mail encounter from caregiver Tamera Velazco APRN.CNM Work Phone: OB/Gynecology Start: 11-03-2024 End: 11-03-2024 Patient encounter procedure Tamera Velazco APRN.CNM Work Phone: OB/Gynecology Comment on above: 11/06/24 Appointment Start: 08-09-2024 End: 08-09-2024 Office outpatient visit 15 minutes Nathan Samaniego PA-C Work Phone: [facility] Medicine Comment on above: Gastroesophageal ref lux disease, unspecified whether esophagitis present (Primary Dx) Start: 08-09-2024 ambulatory [facility] Start: 12-13-2023 End: 12-13-2023 Patient encounter procedure Lisa Dias MD Work Phone: [facility] Work Phone: Start: 12-13-2023 End: 12-13-2023 Periodic preventive med est patient 18-39 yrs Lisa Dias MD Work Phone: [facility] HATCH TENDER Comment on above: Well woman exam with routine gynecological exam (Primary Dx); Encounter for breast cancer screening using non-mammogram modality; Cervical cancer screening Start: 12-13-2023 ambulatory LISA IDAS [facility] Start: 01-04-2023 End: 01-04-2023 Subsequent hospital visit by physician Nathan Samaniego PA-C Work Phone: [facility] Diagnostic Radiology Comment on above: Arrived Start: 01-04-2023 End: 01-04-2023 Office outpatient visit 15 minutes Nathan Samaniego PA-C Work Phone: [facility] Comment on above: Acute right ankle pa in (Primary Dx) Start: 10-21-2022 End: 10-21-2022 Patient encounter status Subhash Emerson MD Work Phone: [facility] Start: 10-21-2022 End: 10-21-2022 Periodic preventive med est patient 18-39 yrs Subhash Emerson MD Work Phone: [facility] Comment on above: Routine medical exam (Primary Dx); Poison ray dermatitis; Tendonitis of left rotator cuff Start: 10-10-2022 End: 10-10-2022 Emergency department patient visit Robb Sherman [facility] Emergency 13 Start: 11-13-2021 End: 11-13-2021 Patient encounter procedure Lisa Dias MD Work Phone: [facility] Start: 11-13-2021 End: 11-13-2021 Periodic preventive med est patient 18-39 yrs Lisa Dias MD Work Phone: [facility] Comment on above: Well woman exam with routine gynecological exam (Primary Dx); Cervical cancer screening; Encounter for breast cancer screening using non-mammogram modality Start: 09-09-2020 End: 09-09-2020 Periodic preventive med est patient 18-39 yrs Lisa Dias Work Phone: [facility] Comment on above: Well woman exam with routine gynecological exam (Primary Dx); Cervical cancer screening; Encounter for screening mammogram for malignant neoplasm of breast; High risk HPV infection; Encounter for surveillance of vaginal ring hormonal contraceptive device Start: 09-08-2019 End: 09-08-2019 Periodic preventive med est patient 18-39 yrs Gwendoline Fanpily Work Phone: [facility] Comment on above: Well woman exam with routine gynecological exam (Primary Dx); Cervical cancer screening; Screening for breast cancer; Encounter for other general counseling or advice on contraception; Encounter for initial prescription of vaginal ring hormonal contraceptive Start: 07-27-2019 End: 07-27-2019 Patient encounter procedure SUBHASH EMERSON [facility] Start: 07-27-2019 End: 07-27-2019 Office outpatient visit 15 minutes Garrett Rahman Neelima Work Phone: [facility] Comment on above: Upper respiratory tr act infection, unspecified type (Primary Dx) Start: 02-10-2018 End: 02-10-2018 Office outpatient visit 15 minutes Cheri Jiménez Work Phone: [facility] Procedures Date Procedure Procedure Detail Performing Clinician Start: 03-02-2025 Urnls dip stick/tabl et rgnt non-auto w/o micrscp Cyndy Egan MD Work Phone: Start: 02-27-2025 Urnls dip stick/tabl et rgnt non-auto w/o micrscp Candida Pulido MD Work Phone: Start: 02-27-2025 Us preg uterus after 1st trimest 06/28 gestation Acacia Suarez ELECTRON BEAM PHOTO MASK TECHNICIAN.CNM Work Phone: Start: 02-21-2025 Us preg uterus after 1st trimest 06/28 gestation Acacia Suarez APRN.CNM Work Phone: Start: 02-21-2025 Urnls dip stick/tabl et rgnt non-auto w/o micrscp Tammy De La Cruz MD Work Phone: Start: 02-12-2025 Urnls dip stick/tabl et rgnt non-auto w/o micrscp Acacia Suarez ELECTRON BEAM PHOTO MASK TECHNICIAN.CNM Work Phone: Start: 01-24-2025 Us preg uterus after 1st trimest 06/28 gestation Shane Ferguson APRN.DATA WAREHOUSING MANAGER Work Phone: Start: 01-15-2025 Adult depression screening assessment Shane Ferguson APRN.DATA WAREHOUSING MANAGER Work Phone: Start: 11-06-2024 Antibody screen ACACIA SUAREZ Comment on above: Order Comment: Speci men Type: BLOOD SPECIMEN Ordering Facility: [facility] Address: [address] [place] [address] Performed By: #### 3 1201-7, 5195-3, 10370-9 #### [facility] CLIA [id number] [address] [place] [address] [place] [address] [place] Start: 01-04-2023 Radex ankle complete minimum 3 views Nathan Samaniego PA-C Work Phone: Start: 09-09-2020 IG PAP/HPV MRNA, RFX TO GENOTYPES 16, 18/45 Gwendoline Fang Work Phone: Start: 09-08-2019 IG PAP/HPV MRNA, RFX TO GENOTYPES 16, 18/45 Gwendoline Fang Work Phone: Plan of Treatment Date Care Activity Detail Author Start: 10-10-2032 Tetanus vaccination TETANUS [facility] Start: 10-10-2032 Urine microalbumin profile DTaP,Tdap,Td Vaccine (2 - Td or Tdap) [facility] Start: 12-12-2026 Screening for malign ant neoplasm of cervix Cervical Cancer Screening [facility] Start: 01-15-2026 Anxiety Screening Anxiety Screening [facility] Start: 01-15-2026 Depression Screening Depression Scre ening [facility] Start: 03-12-2025 End: 03-12-2025 Patient encounter procedure OB/Gynecology Comment on above: OB BPP Start: 03-09-2025 End: 03-09-2025 Patient encounter procedure OB/Gynecology Comment on above: NST Start: 03-07-2025 End: 03-07-2025 Patient encounter procedure Maternal Medicine Comment on above: BPP OB Start: 03-06-2025 End: 03-06-2025 Patient encounter procedure OB/Gynecology Comment on above: BPP/OB - discuss yane acuna plan BPP - okay per LM Start: 03-02-2025 End: 03-02-2025 Patient encounter procedure 03/02/2025 2:45 PM EDT Routine Office Visit OB/Gynecology [address] [place] [address] Acacia Suarez APRN.CNM [address] [place] [address] OB /nst OB/Gynecology Comment on above: OB /nst Start: 03-02-2025 End: 03-02-2025 Patient encounter procedure 03/02/2025 10:30 AM EDT Routine Office Visit OB/Gynecology [address] [place] [address] NST OB/Gynecology Comment on above: NST Start: 02-27-2025 End: 02-27-2025 Patient encounter procedure OB/Gynecology Comment on above: OB BPP Start: 02-26-2025 Influenza vaccination [facility] Start: 02-26-2025 RSV Vaccine (1 - Ris k 1-dose series) RSV Vaccine (1 - Risk 1-dose series) [facility] Start: 02-21-2025 End: 02-21-2025 Patient encounter procedure 02/21/2025 3:30 PM EDT Routine Office Visit Maternal Medicine [address] [place] [address] Growth Maternal Medicine Comment on above: Growth Start: 01-29-2025 End: 01-29-2025 Patient encounter procedure 01/29/2025 1:00 PM EDT Routine Office Visit OB/Gynecology [address] [place] [address] Acacia Suarez APRN.CNM [address] [place] [address] OB OB/Gynecology Comment on above: OB Start: 01-24-2025 End: 01-24-2025 Patient encounter procedure 01/24/2025 9:00 AM EDT Routine Office Visit Maternal Medicine [address] [place] [address] Growth Maternal Medicine Comment on above: Growth Start: 01-15-2025 End: 01-15-2026 OBSTETRIC ULTRASOUND WHI OBSTETRIC ULTRASOUND WHI Anc Imaging Routine Multigravida of advanced maternal age in third trimester (HCC) Uterine size-date discrepancy, third trimester (HCC) Expected: 01/15/2025, Expires: 01/15/2026 [facility] Work Phone: Comment on above: Expected: 01/15/2025 , Expires: 01/15/2026 Start: 01-15-2025 End: 01-15-2025 Patient encounter procedure 01/15/2025 8:45 AM EDT Routine Office Visit OB/Gynecology [address] [place], [place] [address] Shane Ferguson APRN.DATA WAREHOUSING MANAGER [address] [place] [address] OB OB/Gynecology Comment on above: OB Start: 01-01-2025 End: 01-01-2025 Patient encounter procedure 01/01/2025 9:50 AM EDT Routine Office Visit OB/Gynecology [address] [place] [id number] Genie Wesley MD [address] [place] [address] OB OB/Gynecology Comment on above: OB Start: 12-15-2024 End: 12-15-2024 Patient encounter procedure 12/15/2024 9:00 AM EDT Office Visit [facility] T[employer]ER [address] [place] [address] Lisa Dias MD [address] [place] [address] [facility] Start: 12-12-2024 Screening for malign ant neoplasm of cervix CERVICAL CANCER SCREENING DISCUSSION [facility] Start: 12-04-2024 End: 12-04-2024 Patient encounter procedure 12/04/2024 9:45 AM EDT Routine Office Visit OB/Gynecology [address] [place], [place] [id number] Tamera Velazco APRN.CNM [address] [place] [address] OB/Gynecology Comment on above: Start: 11-16-2024 End: 11-16-2024 Patient encounter procedure 11/16/2024 1:40 PM EDT Routine Office Visit OB/Gynecology [address] [place] [address] Genie Wesley MD [address] [place] [address] Anatomy scan at 10:30/OB OB/Gynecology Comment on above: Anatomy scan at 10:3 0/OB Start: 11-16-2024 End: 11-16-2024 Patient encounter procedure 11/16/2024 10:30 AM EDT Routine Office Visit Maternal Medicine [address] [place] [id number] Anatomy Maternal Medicine Comment on above: Anatomy Start: 11-06-2024 End: 02-05-2025 ANEMIA REFLEX PANEL [facility] Comment on above: Expected: 11/06/2024 , Expires: 02/05/2025 Start: 11-06-2024 End: 02-05-2025 Chromosome 21 trisomy [Presence] in Blood or Tissue by Cytogenetics [facility] Comment on above: Expected: 11/06/2024 , Expires: 02/05/2025 Start: 11-06-2024 End: 02-05-2025 Hepatitis B virus surface Ag [Presence] in Serum [facility] Comment on above: Expected: 11/06/2024 , Expires: 02/05/2025 Start: 11-06-2024 End: 02-05-2025 Hepatitis C virus Ab [Presence] in Serum [facility] Comment on above: Expected: 11/06/2024 , Expires: 02/05/2025 Start: 11-06-2024 End: 02-05-2025 HIV 1+2 Ab [Presence] in Serum or Plasma by Immunoassay [facility] Comment on above: Expected: 11/06/2024 , Expires: 02/05/2025 Start: 11-06-2024 End: 11-06-2025 OBSTETRIC ULTRASOUND WHI OBSTETRIC ULTRASOUND WHI Anc Imaging Routine with uncertain dates in first trimester (HCC) Expected: 11/06/2024, Expires: 11/06/2025 [facility] Comment on above: Expected: 11/06/2024 , Expires: 11/06/2025 Start: 11-06-2024 End: 02-05-2025 RUBELLA IGG ANTIBODY [facility] Comment on above: Expected: 11/06/2024 , Expires: 02/05/2025 Start: 11-06-2024 End: 02-05-2025 SYPHILIS TREPONEMAL W/REFLEX [facility] Comment on above: Expected: 11/06/2024 , Expires: 02/05/2025 Start: 11-06-2024 End: 11-06-2024 Patient encounter procedure 11/06/2024 8:45 AM EDT Initial Office Visit OB/Gynecology [address] [place], [place] [id number] Tamera Velazco APRN.[facility] [address] [place] [address] OB/Gynecology Comment on above: Start: 02-27-2024 Covid-19 Vaccine ( season) Covid-19 Vaccine ( season) [facility] Start: 02-27-2024 COVID-19 VACCINE ( season) COVID-19 VACCINE ( season) [facility] Start: 02-27-2024 Influenza vaccination [facility] Start: 11-24-2023 End: 11-24-2023 Patient encounter procedure 11/24/2023 10:00 AM EDT Office Visit [facility] T[employer]ER [address] [place] [phone] Lisa Dias MD [address] [place] [phone] [facility] Start: 02-26-2023 COVID-19 VACCINE ( season) COVID-19 VACCINE ( season) [facility] Start: 02-26-2023 Influenza vaccination A [facility] Start: 11-16-2022 End: 11-16-2022 Patient encounter procedure 11/16/2022 Office Visit HATCH TENDER Lisa Dias MD [address] [place] [address] [facility] Start: 10-21-2022 End: 10-22-2023 Basic metabolic 2000 panel - Serum or Plasma BASIC METABOLIC PANEL Lab Routine Routine medical exam Expected: 10/21/2022, Expires: 10/22/2023 [facility] Comment on above: Expected: 10/21/2022 , Expires: 10/22/2023 Start: 10-21-2022 End: 10-21-2023 LIPID PANEL W CALCULATED LDL LIPID PANEL W CALCULATED LDL Lab Routine Routine medical exam Expected: 10/21/2022, Expires: 10/21/2023 [facility] Comment on above: Expected: 10/21/2022 , Expires: 10/21/2023 Start: 02-26-2022 Influenza vaccination INFLUENZ A VACCINE (Season Ended) [facility] Start: 09-11-2021 End: 09-11-2021 Office Visit 09/11/2021 Office Visit HATCH TENDER Lisa Dias MD [address] [place] [address], [place] [phone] [facility] Start: 09-09-2021 Screening for malign ant neoplasm of cervix CERVICAL CANCER SCREENING DISCUSSION [facility] Start: 11-07-2020 COVID-19 VACCINE (3 - Booster for Pfizer series) COVID-19 VACCINE (3 - Booster for Pfizer series) [facility] Start: 11-07-2020 COVID-19 VACCINE (3 - Pfizer series) COVID-19 VACCINE (3 - Pfizer series) [facility] Start: 09-09-2020 End: 09-09-2020 Office Visit 09/09/2020 Office Visit HATCH TENDER Lisa Dias MD [address] [place] [address] [phone] [facility] T[facility] Start: 02-27-2020 Influenza vaccination INFLUENZA VACC INE (#1) [facility] Start: 12-26-2019 Influenza vaccinatio n given SEQUENTIAL INFLUENZA VACCINE (#1) [facility] Comment on above: Postponed from 02/26 (Patient Refused) Start: 02-26-2019 Influenza vaccination INFLUENZA VACC INE (#1) [facility] Start: 02-26-2018 Influenza vaccination SEQUENTI AL INFLUENZA VACCINE (#1) [facility] Start: 01-19-2015 HPV Vaccine (1 - 3-d ose SCDM series) HPV Vaccine (1 - 3-dose SCDM series) [facility] Start: 01-19-2009 Screening for malign ant neoplasm of cervix [facility] Start: 01-19-2007 Hepatitis B vaccination HEP B VACCINE (1 of 3 - 19+ 3-dose series) [facility] Start: 01-19-2007 Hepatitis B Vaccine (1 of 3 - 19+ 3-dose series) Hepatitis B Vaccine (1 of 3 - 19+ 3-dose series) [facility] Start: 01-19-2007 Third diphtheria, tetanus and acellular pertussis (DTaP) vaccination TDAP (ADULT) [facility] Start: 01-19-2007 Urine microalbumin profile DTaP,Tdap,Td Vaccine (1 - Tdap) [facility] Start: 01-19-2006 Anxiety Screening Anxiety Screening [facility] Start: 01-19-2006 Depression Screening Depression Scre ening [facility] Start: 01-19-2006 Hepatitis C screening Hepatitis C Sc reening [facility] Start: 01-19-2006 HIV screening HIV Screening [facility] Start: 01-19-2006 Tetanus vaccination TETANUS [facility] Start: 01-19-2003 HIV screening HIV SCREENING DISCUSSION [facility] Start: 01-19-2001 HIV screening HIV SCREENING DISCUSSION [facility] Start: 01-19-1993 COVID-19 VACCINE (#1) COVID-19 VACCI NE (#1) [facility] Start: 01-19-1991 History and physical examination, annual for health maintenance Wellness Visit [facility] Start: 1988 Hepatitis C antibody , confirmatory test HEPATITIS C VIRUS SCREENING [facility] Start: 1988 Hepatitis C screening HEPATITI S C VIRUS SCREENING [facility] Start: 1988 Screening for malign ant neoplasm of cervix PAP SMEAR [facility] Start: 1988 Tetanus vaccination TETANUS EVERY [address] [facility] CYTOLOGY-CMM OPERATOR, LI QUID BASED DOMINGO CYTOLOGY-CMM OPERATOR, LIQUID BASED Cytology Routine Cervical cancer screening Ordered: 09/08/2019 [facility] Comment on above: Ordered: 09/08/2019 Bacteria identified in Urine by Culture BACTERIAL CULTURE, URINE Microbiology Routine with uncertain dates in first trimester ([facility]) 11/06/2024 10:22 AM [facility] Chlamydia trachomatis+Neisseria gonorrhoeae DNA [Presence] in Unspecified specimen by LYNETTE with probe detection GONORRHEA/CHLAMYDIA NAAT Lab Routine with uncertain dates in first trimester ([facility]) 11/06/2024 10:22 AM [facility] End: 03-09-2025 nonstress test NON-STRESS TEST Procedures Routine Poor growth affecting management of mother in third trimester, single or unspecified fetus (HCC) Once per week for 2 Occurrences starting 02/27/2025 until 03/09/2025 [facility] Work Phone: Comment on above: Once per week for 2 Occurrences starting 02/27/2025 until 03/09/2025 HCG ( test) Ql (U) POCT URINE Point of Care Testing Routine Encounter for other general counseling or advice on contraception Ordered: 09/08/2019 [facility] Comment on above: Ordered: 09/08/2019 IG PAP/HPV MRNA, RFX TO GENOTYPES 16, 18/45 [facility] End: 08-11-2025 OBSTETRIC ULTRASOUND WHI OBSTETRIC ULTRASOUND WHI Anc Imaging Routine Uterine size-date discrepancy, third trimester (HCC) Late care (HCC) Once per month for 5 Occurrences starting 02/12/2025 until 08/11/2025 [facility] Work Phone: Comment on above: Once per month for 5 Occurrences starting 02/12/2025 until 08/11/2025 PAP/HPV ONLY (RFLX H PV 16/18/45) PAP/HPV ONLY (RFLX HPV 16/18/45) Cytology Routine 12/13/2023 2:05 PM [facility] POC AVIATION SUPPORT EQUIPMENT REPAIRER ULTRASOUND POC AVIATION SUPPORT EQUIPMENT REPAIRER ULTRASO UND Anc Imaging Routine with uncertain dates in first trimester (HCC) Ordered: 11/06/2024 [facility] Work Phone: Comment on above: Ordered: 11/06/2024 ROUTINE, GR OUP B STREPTOCOCCUS BY PCR ROUTINE, GROUP B STREPTOCOCCUS BY PCR Microbiology Routine Encounter for supervision of high risk in third trimester, antepartum (HCC) 36 weeks gestation of (HCC) 02/21/2025 3:29 PM EDT [facility] Work Phone: TRICHOMONAS VAGINALI S NAAT TRICHOMONAS VAGINALIS NAAT Lab Routine with uncertain dates in first trimester (HCC) Screening examination for STD (sexually transmitted disease) 11/06/2024 10:22 AM EDT [facility] Immunizations Immunization Date Immunization Notes Care Provider Kp darby 10-10-2022 tetanus toxoid, redu kandice diphtheria toxoid, and acellular pertussis vaccine, adsorbed No Pcp Required [facility] Payers Date Payer Category Payer Self-pay 08-09-2024 () [facility] [id number] 08-09-2024 [employer] ( and others) [id number] 05-02-2024 Government (not [facility] care or Medicaid) [id number] 05-02-2024 [employer] ( and others) [id number] 02-27-2024 Managed Care (unspecified) [employer] [id number] 02-27-2024 Unknown [id number] 10-12-2023 Unknown 10-12-2023 Unknown [id number] 03-26-2019 Unknown [id number] 03-26-2019 Unknown xxxxxxxxx [id number] 06-28-2018 Private Health Insurance [id number] 01-21-2018 [employer] ( and others) [facility] [id number] 01/21/2018-Present [id number] 01-21-2018 [employer] ( and others) [facility] [id number] 01/21/2018-Present [address] [place] [address] [id number] 1988 Unknown [id number] 1988 Unknown [id number] 1988 Unknown [id number] 1988 Unknown [id number] Private Health Insurance [id number] Unknown [id number] Social History Date Type Detail Facility Start: 02-10-2018 End: 11-06-2024 Tobacco smoking status NHIS Never smoker [facility] Start: 1990 Sex Assigned At Not on file [facility] Start: 09-08-2019 End: 11-13-2021 Alcohol intake Current drinker of alcohol (finding) [facility] Start: 03-28-2018 Alcohol Comment rarely [facility] Start: 09-09-2020 End: 11-06-2024 Tobacco use and exposure Never used [facility] Start: 02-10-2018 Alcohol Comment rare [facility] Tobacco smoking consumption unknown [facility] Start: 10-21-2022 End: 09-06-2024 Alcohol intake Lifetime non-drinker (finding) [facility] History of tobacco use Passive smoker [facility] Start: 01-04-2023 End: 11-06-2024 History of Social function [facility] Start: 01-04-2023 End: 11-06-2024 Tobacco use panel [facility] Start: 04-02-2020 Adolescent depressio n screening assessment 0 [facility] Start: 02-11-2018 Gender identity Identifies as female gender (finding) [facility] Start: 02-03-2018 Sex Female (finding) [facility] Start: 04-09-2020 End: 03-02-2025 Alcoholic beverage intake Ex-drinker (finding) [facility] Start: 06-27-2024 [facility] Goals Date Patient Goal Desired Activity /State Personal health goal Functional Status Date Assessment Result Facility 10-21-2022 Are you deaf, or do you have serious difficulty hearing No 10/21/2022 10:54 AM Greg Andres LPN [facility] 10-21-2022 Are you blind, or do you have serious difficulty seeing, even when wearing glasses No 10/21/2022 10:54 AM Greg Andres LPN No [facility] 10-21-2022 Do you have serious difficulty walking or climbing stairs No 10/21/2022 10:54 AM EDT Greg Ennis LPN [facility] 10-21-2022 Do you have difficul ty dressing or bathing No 10/21/2022 10:54 AM EDT Greg Ennis LPN [facility] 10-21-2022 Because of a physica l, mental, or emotional condition, do you have difficulty doing errands alone such as visiting a physician's office or shopping No 10/21/2022 10:54 AM EDT Greg Ennis LPN [facility] Mental Status Date Assessment Result Facility 10-21-2022 Because of a physica l, mental, or emotional condition, do you have serious difficulty concentrating, remembering, or making decisions No 10/21/2022 10:54 AM EDT Greg Ennis LPN [facility] Clinical Notes 11-13-2021 to 03-02-2025 Cyndy Egan MD - 03/02/2025 1:43 PM EDTPrenatal Quick Notes - Cyndy Egan MD - 03/02/2025 1:40 PM EDTPrenatal Quick Notes - Cyndy Egan MD - 03/02/2025 1:40 PM EDTPatient Instructions Note Date & Type Note Facility 03-02-2025 Note HNO ID: [id number] Author: CYNDY EGAN MD Service: ? Author Type: Physician Type: Progress Notes Filed: 03/02/2025 13:45 Note Text: NST SUMMARY PROVIDER ASSESSMENT AND INTERPRETATION Melina Ponce is a 35 year old female, , who is at 37w3d with an LADONNA of 03/20/2025, by Ultrasound dating method. Indications for NST: IUGR Baseline: 135 Variability: Moderate Accelerations: Present 15 X 15 Decelerations: Isolated Variable Contractions: TOCO: None Interpretation: Reactive SIGNATURE: Cyndy Egan DO [facility] 03-02-2025 History of Presen t illness Narrative NST SUMMARY PROVIDER ASSESSMENT AND INTERPRETATION Melina Ponce is a 35 year old female, , who is at 37w3d with an LADONNA of 03/20/2025, by Ultrasound dating method. Indications for NST: IUGR Baseline: 135 Variability: Moderate Accelerations: Present 15 X 15 Decelerations: Isolated Variable Contractions: TOCO: None Interpretation: Reactive SIGNATURE: Cyndy Egan DO documented in this encounter [facility] 03-02-2025 Progress note Formatting of t his note might be different from the original. SW- Pt doing well. No complaints. No pain, vb, lof. Good FM PE: Gen- NAD, well appearing Abd- Soft, gravid, NT See flowsheet A/p 37 wk gestation - IUGR and AMA: NST reactive today. Completed ultrasound earlier this week. Discussed r/b/a IOL and consent signed. The patient desires IOL at 38 week gestation. Reviewed induction process and questions answered. She understands higher risk for section given IUGR Cyndy Egan DO [facility] 03-02-2025 Miscellaneous Notes SW- Pt doing well. No complaints. No pain, vb, lof. Good FM PE: Gen- NAD, well appearing Abd- Soft, gravid, NT See flowsheet A/p 37 wk gestation - IUGR and AMA: NST reactive today. Completed ultrasound earlier this week. Discussed r/b/a IOL and consent signed. The patient desires IOL at 38 week gestation. Reviewed induction process and questions answered. She understands higher risk for section given IUGR Cyndy Egan DO documented in this encounter [facility] 03-02-2025 Instructions Luann Isabel LPN - 03/02/2025 10:43 AM EDT SEQUENTIAL SCREENINGS The [facility] offers sequential screenings for women who are interested in screenings for chromosomal abnormalities and certain defects during a . The sequential screen combines ultrasound and blood tests to determine the risk of chromosomal abnormalities, including Down's Syndrome (Trisomy 21) and Trisomy 18, as well as open neural tube defects including spina bifida. Ultrasound examination is performed between 11 weeks and 13 weeks gestational age. Blood tests are drawn after the ultrasound and again later in the between 15 and 21 weeks gestational age. Please let your physician know if you are interested in this testing. It will require an appointment with our lidar technician. This is not an ultrasound performed by a physician in our office during a routine visit. SIGNS AND SYMPTOMS OF LABOR 1. Contractions every 10 minutes or more often 2. Clear, pink, or brownish fluid (water) leaking from vagina 3. Feeling that baby is pushing down, pressure 4. Low, dull backache 5. Cramps that feel like a period 6. Cramps with or without diarrhea If you notice any of the above symptoms, contact our office at [phone] and ask to speak with a nurse. After hours, you can call doctors registry at [phone] OR call [facility] at [phone] and ask to have the doctor applications packager paged. If you consider this an emergency, dial 9-1-2 or go to your nearest emergency department. NEED HELP? Are you dealing with a violent or abusive relationship? Are you a victim of rape or sexual assult? Call [facility] ([place]) 24 hour Crisis Hotline: 471.681.9142 or 723-916-4008. MANUAL Your Guide to a Healthy manual is now on-line. Visit [email or web address] to download your free copy documented in this encounter [facility] 02-28-2025 Telephone encounter Note Received [facility] 02/27/2025- form is now completed and signed. Faxed and placed into scanning folder. Linda Capps MA [facility] 02-28-2025 Miscellaneous Notes Received [facility] 02/27/2025- form is now completed and signed. Faxed and placed into scanning folder. Linda Capps MA documented in this encounter [facility] 02-27-2025 Progress note Formatting of t his note might be different from the original. KJ - S: Melina denies LOF, contractions or vaginal bleeding. O: 37w0d, see flow sheet SENSITIVE EXAM: The sensitive examination was discussed with the Patient or Patient's Authorized Commodities Requirements Analyst. As applicable, any other physician, advance practice provider, medical student, or other health professional student that will be observing or involved in the sensitive examination for educational or training purposes was discussed with the Patient or Authorized Commodities Requirements Analyst. The Patient or Authorized Commodities Requirements Analyst has agreed to proceed with the sensitive examination. (Sensitive examination includes inspection and/or palpation of the breasts, pelvis, prostate and anorectal regions). A/P: Assessment & Plan Encounter for supervision of high risk in third trimester, antepartum ([facility]) Orders: URINE OB DIP B/O Multigravida of advanced maternal age in third trimester ([facility]) Orders: URINE OB DIP B/O Late care ([facility]) Orders: URINE OB DIP B/O 37 weeks gestation of ([facility]) Orders: URINE OB DIP B/O Poor growth affecting management of mother in third trimester, single or unspecified fetus ([facility]) BPP 02/02 today Orders: NON-STRESS TEST; Standing Reviewed labor & FM precautions Maria Elena Chavira MD [facility] 02-27-2025 Miscellaneous Notes KJ - S: Melina denies LOF, contractions or vaginal bleeding. O: 37w0d, see flow sheet SENSITIVE EXAM: The sensitive examination was discussed with the Patient or Patient's Authorized Commodities Requirements Analyst. As applicable, any other physician, advance practice provider, medical student, or other health professional student that will be observing or involved in the sensitive examination for educational or training purposes was discussed with the Patient or Authorized Commodities Requirements Analyst. The Patient or Authorized Commodities Requirements Analyst has agreed to proceed with the sensitive examination. (Sensitive examination includes inspection and/or palpation of the breasts, pelvis, prostate and anorectal regions). A/P: Assessment & Plan Encounter for supervision of high risk in third trimester, antepartum ([facility]) Orders: URINE OB DIP B/O Multigravida of advanced maternal age in third trimester ([facility]) Orders: URINE OB DIP B/O Late care ([facility]) Orders: URINE OB DIP B/O 37 weeks gestation of ([facility]) Orders: URINE OB DIP B/O Poor growth affecting management of mother in third trimester, single or unspecified fetus ([facility]) BPP 8/8 today Orders: NON-STRESS TEST; Standing Reviewed labor & FM precautions Maria Elena Chavira MD documented in this encounter [facility] 02-27-2025 Note Indication Evaluation of well-being, Late care, Advanced maternal age, growth restriction Impression remote read - Single, live, intrauterine . - presentation is cephalic. - The amniotic fluid volume is normal amount with an MVP of 3.4 cm and an CHANDLER of 11.9 cm. - The placenta is posterior, fundal. - BPP 8/8. - Doppler velocimetry evaluation of the umbilical and middle cerebral arteries is within normal limits for this gestational age. Recommendations - Weekly BPP alternating with NST q 3-4 days until delivery at 38-39 weeks - Additional follow up as clinically indicated. Maternal Assessment Height 165 cm Height (ft) 5 ft Height (in) 5 in Physical Exam Initial weight (lb) 145 lb Initial BMI 24.13 kg/m Growth Overview Exam date GA BPD (mm) HC (mm) AC (mm) FL (mm) HL (mm) EFW (g) 11/06/2024 20w 6d 51.2 75% 185.6 51% 158.6 48% 31.9 29% 11/16/2024 22w 2d 54.9 64% 204 57% 172.8 40% 35.1 23% 34.7 33% 455 23% 01/24/2025 32w 1d 81.3 58% 299.5 54% 277.7 39% 55.8 4% 1735 17% 02/21/2025 36w 1d 89.3 59% 316.5 27% 304.1 14% 60.5 <1% 2253 6% Method Transabdominal ultrasound examination Segura . Number of fetuses: 1 Dating LMP on: 07/17/2024 GA by LMP 32 w + 1 d LADONNA by LMP: 04/23/2025 GA by prior assessment 37 w + 0 d LADONNA by prior assessment: 03/20/2025 Assigned: based on stated LADONNA, selected on 02/21/2025 Assigned GA 37 w + 0 d Assigned LADONNA: 03/20/2025 General Evaluation Cardiac activity present. FHR 150 bpm. movements: present. Presentation: cephalic Placenta: Placental site: posterior, fundal Umbilical cord: Cord vessels: 3 vessel cord. Insertion site: normal insertion Amniotic Fluid Assessment Amount of AF: normal amount MVP 3.4 cm. CHANDLER 11.9 cm. Q1 3.4 cm, Q2 2.1 cm, Q3 3.4 cm, Q4 3.1 cm Biophysical Profile 2: breathing movements 2: Gross body movements 2: tone 2: Amniotic fluid volume 02/02 Biophysical profile score Anatomy 4-chamber view: normal Heart / Thorax Diaphragm: normal Stomach: normal Kidneys: normal Bladder: normal sex: male Wants to know sex: yes Doppler Arterial Umbilical A PI 1.13 84% Sammy Umbilical A S / D 3.33 93% Darby MCA PI 1.36 19% Sammy MCA PS 62.29 cm/s MoM 1.11 CPR PI 1.20 1% Ebbing Performed By: Mia Panchal RDMS Read By: Ramon Yost M.D. [facility] 02-27-2025 Instructions Patricia Johnson MA - 02/27/2025 11:23 AM EDT SEQUENTIAL SCREENINGS The [facility] offers sequential screenings for women who are interested in screenings for chromosomal abnormalities and certain defects during a . The sequential screen combines ultrasound and blood tests to determine the risk of chromosomal abnormalities, including Down's Syndrome (Trisomy 21) and Trisomy 18, as well as open neural tube defects including spina bifida. Ultrasound examination is performed between 11 weeks and 13 weeks gestational age. Blood tests are drawn after the ultrasound and again later in the between 15 and 21 weeks gestational age. Please let your physician know if you are interested in this testing. It will require an appointment with our lidar technician. This is not an ultrasound performed by a physician in our office during a routine visit. SIGNS AND SYMPTOMS OF LABOR 1. Contractions every 10 minutes or more often 2. Clear, pink, or brownish fluid (water) leaking from vagina 3. Feeling that baby is pushing down, pressure 4. Low, dull backache 5. Cramps that feel like a period 6. Cramps with or without diarrhea If you notice any of the above symptoms, contact our office at [phone] and ask to speak with a nurse. After hours, you can call doctors registry at [phone] OR call [facility] at [phone] and ask to have the doctor applications packager paged. If you consider this an emergency, dial 91-4 or go to your nearest emergency department. NEED HELP? Are you dealing with a violent or abusive relationship? Are you a victim of rape or sexual assult? Call [facility] ([place]) 24 hour Crisis Hotline: 873.232.7216 or 912-378-2137. MANUAL Your Guide to a Healthy manual is now on-line. Visit [email or web address] to download your free copy documented in this encounter [facility] 02-22-2025 Note Indication Evaluation of growth, Evaluation of well-being Late care, Advanced maternal age, Discrepancy between uterine size and clinical dates Impression - Single, live, intrauterine . - presentation is cephalic. - growth restriction is present. - The EFW is 2253 g, at the 6%. AC is at the 14%. - Adequate interval growth. - The amniotic fluid volume is normal amount with an MVP of 4.1 cm and an CHANDLER of 13.7 cm. - The placenta is posterior, fundal. - BPP /. - No malformations visualized on a limited survey as detailed below. - Doppler velocimetry evaluation of the umbilical arteries is high-normal for this gestational age. Recommendations - Weekly BPP alternating with NST q 3-4 days - Delivery is recommended at 38-39 weeks unless UA Doppler >95% (then 37) - Additional follow up as clinically indicated. Maternal Assessment Height 165 cm Height (ft) 5 ft Height (in) 5 in Physical Exam Initial weight (lb) 145 lb Initial BMI 24.13 kg/m Maternal assessment other: 2 Para 1 REMOTE READ Method Transabdominal ultrasound examination Segura . Number of fetuses: 1 Dating LMP on: 07/17/2024 GA by LMP 31 w + 2 d LADONNA by LMP: 04/23/2025 GA by prior assessment 36 w + 1 d LADONNA by prior assessment: 03/20/2025 Ultrasound examination on: 02/21/2025 GA by U/S based upon: AC, BPD, Femur, HC GA by U/S 34 w + 1 d LADONNA by U/S: 04/03/2025 Assigned: based on stated LADONNA, selected on 02/21/2025 Assigned GA 36 w + 1 d Assigned LADONNA: 03/20/2025 General Evaluation Cardiac activity present. FHR 131 bpm. movements: present. Presentation: cephalic Placenta: Placental site: posterior, fundal Umbilical cord: Cord vessels: 3 vessel cord Amniotic fluid: Amount of AF: normal amount. MVP 4.1 cm. CHANDLER 13.7 cm. Q1 3.3 cm, Q2 4.1 cm, Q3 3.1 cm, Q4 3.1 cm Biophysical Profile 2: breathing movements 2: Gross body movements 2: tone 2: Amniotic fluid volume 02/02 Biophysical profile score Growth Overview Exam date GA BPD (mm) HC (mm) AC (mm) FL (mm) HL (mm) EFW (g) 11/06/2024 20w 6d 51.2 75% 185.6 51% 158.6 48% 31.9 29% 11/16/2024 22w 2d 54.9 64% 204 57% 172.8 40% 35.1 23% 34.7 33% 455 23% 01/24/2025 32w 1d 81.3 58% 299.5 54% 277.7 39% 55.8 4% 1735 17% 02/21/2025 36w 1d 89.3 59% 316.5 27% 304.1 14% 60.5 <1% 2253 6% Biometry Standard BPD 89.3 mm 36w 1d 59% Hadlock OFD 109.9 mm 33w 0d 21% Nicolaides HC 316.5 mm 34w 5d 27% Jones AC 304.1 mm 34w 3d 14% Hadlock Femur 60.5 mm 31w 2d <1% Jones EFW 2,253 g 33w 3d 6% Hadlock EFW (lb) 4 lb EFW (oz) 15 oz EFW by: Hadlock (HC-AC-FL) Extended Superintendent Sales 5.3 mm Extremities / Bony Struc FL / HC 0.19 Other Structures FHR 131 bpm Anatomy Lateral ventricles: normal Cavum septi pellucidi: normal Cerebellum: normal Cisterna magna: normal 4-chamber view: normal RVOT view: normal LVOT view: normal 3-vessel view: normal Heart / Thorax Situs: situs solitus (normal) Diaphragm: normal Stomach: normal Kidneys: normal Bladder: normal sex: male Wants to know sex: yes Doppler Arterial Umbilical A PI 1.28 94% Sammy Umbilical A S / D 3.43 94% Darby Performed By: Ellen Maldonado RDMS, RVT Read By: Chantal Moya M.D. [facility] 02-21-2025 Progress note Formatting of t his note might be different from the original. RR- VB No. LOF No. CTXS No. Movement: present. Other c/o: No. Medication list reviewed. SENSITIVE EXAM: The sensitive examination was discussed with the Patient or Patient's Authorized Commodities Requirements Analyst. As applicable, any other physician, advance practice provider, medical student, or other health professional student that will be observing or involved in the sensitive examination for educational or training purposes was discussed with the Patient or Authorized Commodities Requirements Analyst. The Patient or Authorized Commodities Requirements Analyst has agreed to proceed with the sensitive examination. (Sensitive examination includes inspection and/or palpation of the breasts, pelvis, prostate and anorectal regions). Physical Exam See Flow Sheet Abd: soft, nontender, gravid : external genitalia: normal A/P 36w1d Estimated Date of Delivery: 03/20/25 ASSESSMENT/PLAN: 1. Encounter for supervision of high risk in third trimester, antepartum ([facility]) - ICD9: V23.9, ICD10: O09.93 (primary diagnosis) - URINE OB DIP B/O - ROUTINE, GROUP B STREPTOCOCCUS BY PCR 2. Uterine size-date discrepancy, third trimester ([facility]) - ICD9: 649.63, ICD10: O26.843 growth scan today - URINE OB DIP B/O 3. 36 weeks gestation of ([facility]) - ICD9: V22.2, ICD10: Z3A.36 - URINE OB DIP B/O - ROUTINE, GROUP B STREPTOCOCCUS BY PCR 4. Multigravida of advanced maternal age in third trimester ([facility]) - ICD9: 659.63, ICD10: O09.523 desires induction at 39+ weeks for AMA Candida Pulido MD [facility] 02-21-2025 Miscellaneous Notes RR- VB No. LOF No. CTXS No. Movement: present. Other c/o: No. Medication list reviewed. SENSITIVE EXAM: The sensitive examination was discussed with the Patient or Patient's Authorized Commodities Requirements Analyst. As applicable, any other physician, advance practice provider, medical student, or other health professional student that will be observing or involved in the sensitive examination for educational or training purposes was discussed with the Patient or Authorized Commodities Requirements Analyst. The Patient or Authorized Commodities Requirements Analyst has agreed to proceed with the sensitive examination. (Sensitive examination includes inspection and/or palpation of the breasts, pelvis, prostate and anorectal regions). Physical Exam See Flow Sheet Abd: soft, nontender, gravid : external genitalia: normal A/P 36w1d Estimated Date of Delivery: 03/20/25 ASSESSMENT/PLAN: 1. Encounter for supervision of high risk in third trimester, antepartum ([facility]) - ICD9: V23.9, ICD10: O09.93 (primary diagnosis) - URINE OB DIP B/O - ROUTINE, GROUP B STREPTOCOCCUS BY PCR 2. Uterine size-date discrepancy, third trimester ([facility]) - ICD9: 649.63, ICD10: O26.843 growth scan today - URINE OB DIP B/O 3. 36 weeks gestation of ([facility]) - ICD9: V22.2, ICD10: Z3A.36 - URINE OB DIP B/O - ROUTINE, GROUP B STREPTOCOCCUS BY PCR 4. Multigravida of advanced maternal age in third trimester ([facility]) - ICD9: 659.63, ICD10: O09.523 desires induction at 39+ weeks for AMA Candida Pulido MD documented in this encounter [facility] 02-21-2025 Instructions Agustina Gandara MA - 02/21/2025 3:02 PM EDT SEQUENTIAL SCREENINGS The [facility] offers sequential screenings for women who are interested in screenings for chromosomal abnormalities and certain defects during a . The sequential screen combines ultrasound and blood tests to determine the risk of chromosomal abnormalities, including Down's Syndrome (Trisomy 21) and Trisomy 18, as well as open neural tube defects including spina bifida. Ultrasound examination is performed between 11 weeks and 13 weeks gestational age. Blood tests are drawn after the ultrasound and again later in the between 15 and 21 weeks gestational age. Please let your physician know if you are interested in this testing. It will require an appointment with our lidar technician. This is not an ultrasound performed by a physician in our office during a routine visit. SIGNS AND SYMPTOMS OF LABOR 1. Contractions every 10 minutes or more often 2. Clear, pink, or brownish fluid (water) leaking from vagina 3. Feeling that baby is pushing down, pressure 4. Low, dull backache 5. Cramps that feel like a period 6. Cramps with or without diarrhea If you notice any of the above symptoms, contact our office at [phone] and ask to speak with a nurse. After hours, you can call doctors registry at [phone] OR call [facility] at [phone] and ask to have the doctor applications packager paged. If you consider this an emergency, dial 9-1-5 or go to your nearest emergency department. NEED HELP? Are you dealing with a violent or abusive relationship? Are you a victim of rape or sexual assult? Call [facility] ([place]) 24 hour Crisis Hotline: 708.994.8308 or 727-532-4064. MANUAL Your Guide to a Healthy manual is now on-line. Visit [email or web address] to download your free copy documented in this encounter [facility] 02-12-2025 Progress note Formatting of t his note is different from the original. MARIZOL-S: Melina Ponce is a 34 year old female who presents at 34w6d with LADONNA:03/20/2025, by Ultrasound for a routine visit. Denies headache, visual changes, chest pain, shortness of breath, vaginal bleeding, leakage of fluid, or dysuria. Feeling well, no complaints. O: See flow sheet Gen: No apparent distress Abd: Gravid, nontender SGrowth US at 32 wk The EFW is 1735 g, at the 17%. AC is at the 39%. MVP of 4.8 cm and an CHANDLER of 14.6 cm ASSESSMENT/PLAN: 1. Encounter for supervision of high risk in second trimester, antepartum - Continue PNV - Continue ASA -GBS next visit -Discussed ways to promote spontaneous labor -Handout out given on vasectomy 2. 34 weeks gestation of 3. Multigravida of advanced maternal age in third trimester -37 at delivery, no testing 4. Late care 5. Uterine size date discrepancy -Growth US follow up in 1-2 weeks - PTL precautions and kick counts reviewed - RTO- 1-2 weeks or sooner if needed Acacia Suarez APRN.CNM [facility] 02-12-2025 Miscellaneous Notes MARIZOL-S: Melina Ponce is a 34 year old female who presents at 34w6d with LADONNA:03/20/2025, by Ultrasound for a routine visit. Denies headache, visual changes, chest pain, shortness of breath, vaginal bleeding, leakage of fluid, or dysuria. Feeling well, no complaints. O: See flow sheet Gen: No apparent distress Abd: Gravid, nontender S<D, 27 lb TWG Growth US at 32 wk The EFW is 1735 g, at the 17%. AC is at the 39%. MVP of 4.8 cm and an CHANDLER of 14.6 cm ASSESSMENT/PLAN: 1. Encounter for supervision of high risk in second trimester, antepartum - Continue PNV - Continue ASA -GBS next visit -Discussed ways to promote spontaneous labor -Handout out given on vasectomy 2. 34 weeks gestation of 3. Multigravida of advanced maternal age in third trimester -37 at delivery, no testing 4. Late care 5. Uterine size date discrepancy -Growth US follow up in 1-2 weeks - PTL precautions and kick counts reviewed - RTO- 1-2 weeks or sooner if needed Acacia Suarez APRN.CNM documented in this encounter [facility] 02-12-2025 Instructions Acacia Suarez APRN.CNM - 02/12/2025 8:46 AM EDT Images from the original note were not included. Vasectomy is a simple, safe operation that involves interrupting the tubes call the vas deferens that transport sperm. Vasectomy is a one-time procedure that provides permanent sterilization. The procedure is performed in the office under a local anesthetic. Most men are recovered within a few days of the procedure. To schedule a consultation call [phone] or to learn more about vasectomy, visit [email or web address] _ Group B Strep In What is group B strep (GBS)? GBS is one of many common bacteria that live in the human body without causing harm in healthy people.GBS can be found in the intestine, rectum, and vagina in about 2 of every 10 women near the time of . GBS is not a sexually transmitted infection anddoes not cause any vaginal symptoms. When does GBS cause infection? GBS can cause your baby to get pneumonia or a blood infection if your baby gets GBS from your vagina during .Full-term babies whose mothers carry GBS in the vagina at the time of have a 1 in 200 chance of getting sick from GBS during the first few days after . Women who have GBS in their vagina during labor can get an infection in their uterus. How do I know if I carry GBS? Some women have GBS all the time. In many women, it grows in the vagina at times then goes away and comes back again later. During a visit when you are between 35 and 37 weeks , you or your health care provider will collect a sample by touching the outer part of your vagina and just inside the anus with a sterile Q-tip. If GBS grows from that sample, you will be told that you carry GBS and this will be recorded in your chart. You or your provider can write the test results in the box on the next page so you have a record. How can infection from GBS be prevented? If your culture is positive for GBS within 5 weeks of giving , it is very likely that you will still have GBS in your vagina when you go into labor.Your health care provider will recommend that you receive the antibiotic penicillin during labor. GBS is very sensitive to penicillin and is easily removed from the vagina. A few IV doses of penicillin given up to 4 hours before almost always prevents your baby from picking up GBS during . Do I have to wait for labor to take penicillin? GBS is usually not harmful to you or your baby before you are in labor.GBS is easy to remove from the vagina, but iti s not easy to remove from the intestine.If you take penicillin before you are in labor,GBS will return to the vagina as soon as you stop taking the medication, which does not get rid of GBS in your intestine. It is best to take penicillin during labor when it can get rid of the GBS in your vagina quickly and best prevent your baby from getting sick. The one exception is that GBS can occasionally cause a urinary tract infection during . If you get a urinary tract infection, you should be treated with antibiotics at that time.You should also receive penicillin again when you are in labor. What if I don t have time to get penicillin while I m in labor? If you carry GBS in your vagina at the time of and are not able to receive penicillin before your baby is born, your baby will be watched closely for signs of GBS infection. Almost all babies who develop GBS infection will show signs within 24 hours of being born. How do I know if my baby has a GBS infection? If your baby gets a GBS infection, symptoms include difficulty breathing (including grunting or being pale), problems with temperature (too cold or too hot), difficulty with more spitting up than usual, or extreme sleepiness that interferes with . What is the treatment if my baby has a GBS infection? If the infection is caught early and your baby is full-term, most babies will completely recover with IV antibiotic treatment. Of the babies who get sick, about 1 in 6 can have serious complications. Some babies who are very sick will .In most cases, if you carry GBS in the vagina at the time of and are given IV penicillin in labor, the risk of your baby getting sick is very rare (about 1 in 4,000). What if I m allergic to penicillin? Penicillin is the best antibiotic for preventing GBS infection. However, women who are allergic to penicillin can receive different antibiotics during labor.Tell your health care provider if you are allergic to penicillin and what symptoms you had when you had that allergic reaction. For More Information: Centers for Disease Control and Prevention: www.cdc.gov/groupbstrep/ March of Dimes http://www.marchofdimes.org/preg lloyd/g dfuh-n-vuyhc-infection.aspx Preparing for labor: Eat dates to promote spontaneous labor! Has an oxytocin-like effect on the body, leading to increased sensitivity of the uterus. Stimulates uterine contractions. Reduces hemorrhage the way oxytocin does. Date fruit contains saturated and unsaturated fatty acids such as oleic, linoleic, and linolenic acids, which are involved in saving and supplying energy and construction of prostaglandins. In addition, serotonin, tannin, and calcium in date fruit contribute to the contraction of smooth muscles of the uterus. Date fruit also has a laxative effect, which stimulates uterine contractions. Six dates per day is the magic number--provided that you re eating smaller deglet noor dates. Deglet noor dates are about 1 inch long. Medjool dates can be up to 2 inches long. If you re eating medjool dates, you only need about 3 dates to reach the 75 grams recommended in the studies. Not sure which type of date you have in your refrigerator? It s probably a deglet noor. How to Eat Dates During Dates are a healthy and delicious snack, so how can you add them to your diet? Add dates during in this awesome oatmeal recipe. Add dates to replace sugar in your favorite recipe or to nichelle your homemade almond milk. Use dates and nuts to make an easy pie crust in the food service cashier. Add soaked dates to homemade nut butter for a sweet treat. Add dates to nichelle homemade salad dressing. Add dates during easily with these yummy (paleo friendly) bars made from dates. What Is Red Raspberry [place] Tea? Red raspberry leaf tea comes from the leaves of the red raspberry plant. This herbal tea has been used for centuries to support respiratory, digestive and uterine health, particularly during and childbearing years. While usually known as a female herb, red raspberry leaf tea can also help support the prostate and various stomach ailments in children. How It Can Help and Red raspberry leaf tea can help to make labor faster and reduce complications and interventions during . One study found that women who consumed RRL tea regularly are less likely to go overdue or give prematurely. These women may also be less likely to receive an artificial rupture of their membranes or require a section, forceps, or vacuum than the women in the control group. Red raspberry leaf has many other benefits to , , and too. How Much Red Raspberry [place] Tea to Drink? With your doctor or project coach s approval, start with 1 cup of red raspberry leaf tea per day starting in the second trimester. Watch for any uterine cramping or other reactions. If you don t experience any, you can talk to your healthcare provider about increasing to 2 cups per day. Again, watch for any uterine cramping. If you notice any, cut back on your dosage for two weeks and try again. Keep in mind, some moms have irritable uteruses and can only drink red raspberry leaf tea once they reach their due date because of uterine cramping. Is Red Raspberry [place] Tea the Same as Raspberry [place] Tea? How About Plain Old Raspberry Tea? Sometimes. You really need to look at the ingredients to be sure. Note that there is no difference between red raspberry leaf and raspberry leaf. Yabbly or Z[employer]ai.com Raspberry [place] Tea are two good brands. The red raspberry leaf teas that we recommend are 100% red raspberry leaf. Other teas labeled as raspberry are often a blend of rosehips, hibiscus, raspberry leaves, and raspberry flavor. So they may not be as effective. The teas to avoid are raspberry-flavored herbal teas, which may have ingredients like hibiscus, kavya hips, apples, elderberries, natural and artificial raspberry flavors. Teas like this don t contain raspberry leaf at all and thus won t offer any of the potential benefits of RRLT outlined in this article. [employer] www.[employer] I named this 'circuit' after my friend Lorena Rivera, who shared and discussed it with me when I was working with a client whose labor seemed to be stalled out and no longer progressing... This circuit is useful to help get the baby lined up, ideally, in the Left Occiput Anterior (JENNA) Position, both before labor begins and when some corrections need to be done during labor. Prenatally, this position set can help to rotate a baby. As a natural method of induction, this can help get things going if baby just needed a gentle nudge of position to set things off. To the best of my knowledge, this group of positions will not hurt a baby that is already lined up correctly. - Jennifer Andino Before you Begin..... This circuit takes at least 90 minutes to complete so clear your schedule and make mental preparations so you can relax in your environment. The second step requires a lot of pillows so gather them up before beginning Before starting, you should empty your bladder! Have a nice drink nearby, and make sure it has a straw! If you are having contractions, this circuit should bedone through contractions, try not to change positions between steps Step One: Open-knee Chest Stay in this position for 30 minutes, start in cat/cow, then drop your chest as low as you can to the bed or the floor and your bottom as high as you can. Knees should be fairly wide apart, and the angle between the torso/thighs should be wider than 90 degrees. Wiggle around, prop with lots of pillows and use this time to get totally relaxed. This position allows the baby to scoot out of the pelvis a bit and gives them room to rotate, shift their head position, etc. If the person finds it helpful,careful positioning with a rebozo under the belly, with gentle tension from a support person behindcan help maintain this position for the full 30minutes. Step Two: Exaggerated Left Side Lying Roll to your left side, bringing your top leg as high as possible and keeping your bottom leg straight. Roll forward as much as possible,again using a lot of pillows. Sink into the bed and relax some more. If you fall asleep, that's totally okay and you can stay there! If not, stay here for at least another half an hour. Try and get your top right leg up towards your head and get as rolled over onto your belly as much as possible. If you repeat the circuit during labor, try alternating left and right sides. We know the photo the left is actually right side... just flip the image in your head. Step Three: Moving and Lunges Lunge, walk stairs facing sideways, 2 at a time, (have a citrix lead downstairs of you!), take a walk outside with one foot on the curb and the other on the street, sit on a ball and hula- anything that's upright and putting your pelvis in open, asymmetrical positions. Spend at least 30 minutes doing this one as well to give your baby a chance to move down. If you are lunging or stair or curb walking, you should lunge/walk/go up stairs in the direction that feels better to you. The hyde with the lunge is that the toes of the higher leg and mom's belly button should be at right angles. Do not lunge over your knee, that closes the pelvis. Lorena Rivera: Circuit Creator - www.[facility].[employer] Jennifer Andino, MATTHIEU, BDT (PIPPA), LCCE, FACCE: Supporting Content - www.jenniferSilver Tail Systemsisrael.[employer] Shane Meza: Photography - www.Athlete BuilderlalaCelladon.[employer] Autumn Rain CD/CDT (INDER): Print and Indian Nanny - www.LED [employer] Sense [employer] Mastermind[employer] Lucibel [employer] www.The Sea App.[employer] What is my perineum? Your perineum is the area between your vaginal opening and your rectum. This area stretches when you give , and sometimes the perineum or vagina will tear as your baby is being born. If your health care provider cuts an episiotomy during your , it is this area that is cut. You may need stitches after your baby is born if you have a tear or have an episiotomy. How often do perineal tears occur? About 4 to 8 out of every 10 women who give vaginally will have some tear in their perineum. About two?thirds of these women will need some stitches. Is an episiotomy necessary? An episiotomy is not necessary for most women. Although they were common before the , they are rarely done today. However, sometimes your health care provider may recommend an episiotomy just as your baby is being born. For example, an episiotomy can help if your baby needs to be born very quickly. You can ask your health care provider to talk with you about episiotomy during a visit. Can my health care provider do anything to help me avoid a tear? There are many ways that your health care provider can help to reduce your chance of tearing. For example, your provider may: Apply a warm compress to the perineum just before the baby comes out Recommend specific positions for you to be in as you push Provide gentle downward pressure on the baby's head as your baby is coming out Ask that you push your baby out between contractions Avoid the use of forceps or a vacuum to help your baby be born Can I do anything before the to help me avoid a tear? Preventing a perineal tear that occurs during has been the subject of many research studies. Several studies have found that perineal massage during the last weeks of can reduce tearing at for women giving for the first time. This massage--using 2 fingers to stretch your perineal tissues--is performed by you, in your home, once or twice a week, for the last 4 to 6 weeks of your . The next page of this handout tells how to do this massage. For every 15 women who do perineal massage, one woman will avoid an episiotomy and perineal tearing that needs stitches. While you massage, you can practice relaxing the muscles in your perineum. This can help you prepare for the stretching, burning feeling you may have when your baby's head is born. Relaxing this area during can help prevent tearing. Does perineal massage in help all women? Massage seems to work better for some women than others. Women having their first baby, women who are 30 years or older, and women who have had episiotomies before have fewer tears and less severe tears when perineal massage is done during the last weeks of . Can my partner help? Yes! Many women find that it is easier to have their partners do this massage. See the instructions for perineal massage on the next page for more information. Are there any risks to perineal massage during ? Not that we know of. It is free. It doesn't hurt. It is easy to do. And most women don't mind doing it. However, you should not stretch the perineum until it hurts or massage too often, which can hurt the skin in that area. Do not do perineal massage more than once or twice a week. Women who do it more often do not have a lower risk of perineal tearing. Check with your health care provider before beginning perineal massage. And, if you believe your amniotic fluid (bag of holland) is leaking, check with your health care provider before putting anything in your vagina. Instructions for Perineal Massage During Wash your hands well, and make sure your fingernails are short. Relax in a private place where you can rest with your legs open and your knees bent. Some women like to lean on pillows for back support. Lubricate your thumbs and the perineal tissues. Use a lubricant such as vitamin E oil, coconut oil, almond oil, or any vegetable oil used for cooking--like olive oil. You may also try a water?soluble jelly, such as K?Y jelly, or your body's natural vaginal lubricant. Do not use baby oil, mineral oil, or petroleum jelly (Vaseline). Place your thumbs about 1 to 1.5 inches inside your vagina (see Figure 1). Press down (toward the anus) and to the sides until you feel a slight burning, stretching sensation. Hold that stretched position for 1 or 2 minutes. With your thumbs, slowly massage the lower half of the vagina using a U?shaped movement for 2 to 3 minutes at most. Concentrate on relaxing your muscles. This is a good time to practice slow, deep breathing techniques. Partners: If your partner is doing the perineal massage, follow the same basic instructions above. However, your partner should use his or her index fingers to do the massage (instead of thumbs). The same side?to?side, U?shaped, downward pressure method should be used. Good communication is important--be sure to tell your partner if you have too much pain or burning! Figure 1 1 Perineal Massage Flesch?Skippers Grade Level: 7.2 Approved June 2015. This handout replaces Perineal Massage in published in Volume 50, Issue 1, Jun/Jul 2004 SIGNS AND SYMPTOMS OF LABOR 1. Contractions every 10 minutes or more often 2. Clear, pink, or brownish fluid (water) leaking from vagina 3. Feeling that baby is pushing down, pressure 4. Low, dull backache 5. Cramps that feel like a period 6. Cramps with or without diarrhea If you notice any of the above symptoms, contact our office at [phone] and ask to speak with a nurse. After hours, you can call doctors registry at [phone] OR call [facility] at [phone] and ask to have the doctor applications packager paged. If you consider this an emergency, dial 4-8-7 or go to your nearest emergency department. NEED HELP? Are you dealing with a violent or abusive relationship? Are you a victim of rape or sexual assult? Call [facility] ([place]) 24 hour Crisis Hotline: 381.299.3498 or 640-756-8543. MANUAL Your Guide to a Healthy manual is now on-line. Visit [email or web address] [email or web address] to download your free copy documented in this encounter [facility] 01-24-2025 Note Indication Evaluation of growth Advanced maternal age, late care, Discrepancy between uterine size and clinical dates Impression - Single, live, intrauterine . - presentation is cephalic. - The biometry is consistent with the assigned gestational dating. - The EFW is 1735 g, at the 17%. AC is at the 39%. - The amniotic fluid volume is normal amount with an MVP of 4.8 cm and an CHANDLER of 14.6 cm. - The placenta is posterior, fundal. - No malformations visualized on a limited survey as detailed below. Recommendations Additional follow-up as clinically indicated. Maternal Assessment Height 165 cm Height (ft) 5 ft Height (in) 5 in Physical Exam Initial weight (lb) 145 lb Initial BMI 24.13 kg/m Maternal assessment other: 2 Para 1 REMOTE READ Method Transabdominal ultrasound examination Segura . Number of fetuses: 1 Dating LMP on: 07/17/2024 GA by LMP 27 w + 2 d LADONNA by LMP: 04/23/2025 GA by prior assessment 32 w + 1 d LADONNA by prior assessment: 03/20/2025 Ultrasound examination on: 01/24/2025 GA by U/S based upon: AC, BPD, Femur, HC GA by U/S 31 w + 4 d LADONNA by U/S: 03/24/2025 Assigned: based on stated LADONNA, selected on 01/24/2025 Assigned GA 32 w + 1 d Assigned LADONNA: 03/20/2025 General Evaluation Cardiac activity present. FHR 131 bpm. movements: present. Presentation: cephalic Placenta: Placental site: posterior, fundal Umbilical cord: Cord vessels: 3 vessel cord Amniotic fluid: Amount of AF: normal amount. MVP 4.8 cm. CHANDLER 14.6 cm. Q1 3.9 cm, Q2 4.8 cm, Q3 2.7 cm, Q4 3.2 cm Growth Overview Exam date GA BPD (mm) HC (mm) AC (mm) FL (mm) HL (mm) EFW (g) 11/06/2024 20w 6d 51.2 75% 185.6 51% 158.6 48% 31.9 29% 11/16/2024 22w 2d 54.9 64% 204 57% 172.8 40% 35.1 23% 34.7 33% 455 23% 01/24/2025 32w 1d 81.3 58% 299.5 54% 277.7 39% 55.8 4% 1735 17% Biometry Standard BPD 81.3 mm 32w 5d 58% Hadlock OFD 105.7 mm 31w 2d 45% Nicolaides HC 299.5 mm 32w 2d 54% Jones AC 277.7 mm 31w 6d 39% Hadlock Femur 55.8 mm 29w 3d 4% Jones EFW 1,735 g 30w 6d 17% Hadlock EFW (lb) 3 lb EFW (oz) 13 oz EFW by: Hadlock (HC-AC-FL) Extended Superintendent Sales 5.5 mm Extremities / Bony Struc FL / HC 0.19 Other Structures FHR 131 bpm Anatomy Lateral ventricles: normal Cavum septi pellucidi: normal Cerebellum: normal Cisterna magna: normal 4-chamber view: normal RVOT view: normal LVOT view: normal 3-vessel view: normal Heart / Thorax Situs: situs solitus (normal) Diaphragm: normal Stomach: normal Kidneys: normal Bladder: normal sex: male Wants to know sex: yes Performed By: Ellen Maldonado RDMS, RVT Read By: Susan Mulligan M.D. [facility] 01-15-2025 Progress note Formatting of t his note might be different from the original. EH - S: Melina is a 34 year old female who presents at 30w6d for a routine visit. Feeling movement. Denies headache, visual changes, chest pain, shortness of breath, vaginal bleeding, leakage of fluid, or dysuria. Occasional BH. O: See flow sheet Gen: No apparent distress Abd: Gravid, nontender, S ASSESSMENT/PLAN: 1. Encounter for supervision of high risk in third trimester, antepartum ([facility]) - ICD9: V23.9, ICD10: O09.93 (primary diagnosis) - Continue PNV and LDA 2. 30 weeks gestation of ([facility]) - ICD9: V22.2, ICD10: Z3A.30 - 28 week labs reviewed 3. Multigravida of advanced maternal age in third trimester ([facility]) - ICD9: 659.63, ICD10: O09.523 - Age 35 at LADONNA 4. Uterine size-date discrepancy, third trimester ([facility]) - ICD9: 649.63, ICD10: O26.843 - S- OBSTETRIC ULTRASOUND WHI PTL precautions and kick counts reviewed. RTO in 2 weeks or sooner as needed. Shane Ferguson APRN.DATA WAREHOUSING MANAGER [facility] 01-15-2025 Miscellaneous Notes EH - S: Melina is a 34 year old female who presents at 30w6d for a routine visit. Feeling movement. Denies headache, visual changes, chest pain, shortness of breath, vaginal bleeding, leakage of fluid, or dysuria. Occasional BH. O: See flow sheet Gen: No apparent distress Abd: Gravid, nontender, S<D, 25 lb TWG ASSESSMENT/PLAN: 1. Encounter for supervision of high risk in third trimester, antepartum ([facility]) - ICD9: V23.9, ICD10: O09.93 (primary diagnosis) - Continue PNV and LDA 2. 30 weeks gestation of ([facility]) - ICD9: V22.2, ICD10: Z3A.30 - 28 week labs reviewed 3. Multigravida of advanced maternal age in third trimester ([facility]) - ICD9: 659.63, ICD10: O09.523 - Age 35 at LADONNA 4. Uterine size-date discrepancy, third trimester ([facility]) - ICD9: 649.63, ICD10: O26.843 - S<D - OBSTETRIC ULTRASOUND WHI PTL precautions and kick counts reviewed. RTO in 2 weeks or sooner as needed. Shane Ferguson APRN.DATA WAREHOUSING MANAGER documented in this encounter [facility] 01-15-2025 Instructions Avril Cleary LPN - 01/15/2025 8:32 AM EDT SEQUENTIAL SCREENINGS The [facility] offers sequential screenings for women who are interested in screenings for chromosomal abnormalities and certain defects during a . The sequential screen combines ultrasound and blood tests to determine the risk of chromosomal abnormalities, including Down's Syndrome (Trisomy 21) and Trisomy 18, as well as open neural tube defects including spina bifida. Ultrasound examination is performed between 11 weeks and 13 weeks gestational age. Blood tests are drawn after the ultrasound and again later in the between 15 and 21 weeks gestational age. Please let your physician know if you are interested in this testing. It will require an appointment with our lidar technician. This is not an ultrasound performed by a physician in our office during a routine visit. SIGNS AND SYMPTOMS OF LABOR 1. Contractions every 10 minutes or more often 2. Clear, pink, or brownish fluid (water) leaking from vagina 3. Feeling that baby is pushing down, pressure 4. Low, dull backache 5. Cramps that feel like a period 6. Cramps with or without diarrhea If you notice any of the above symptoms, contact our office at [phone] and ask to speak with a nurse. After hours, you can call doctors registry at [phone] OR call [facility] at [phone] and ask to have the doctor applications packager paged. If you consider this an emergency, dial or go to your nearest emergency department. NEED HELP? Are you dealing with a violent or abusive relationship? Are you a victim of rape or sexual assult? Call [facility] ([place]) 24 hour Crisis Hotline: 130.846.8343 or 518-979-4622. MANUAL Your Guide to a Healthy manual is now on-line. Visit [email or web address] [email or web address] to download your free copy documented in this encounter [facility] 01-01-2025 Progress note Formatting of t his note might be different from the original. S: Melina Ponce is a 34 year old female who presents at 03/20/2025, by Ultrasound for a routine visit. Denies headache, visual changes, chest pain, shortness of breath, vaginal bleeding, leakage of fluid, or dysuria. Feeling well, no complaints. Good movement, No contractions O: See flow sheet Gen: No apparent distress Abd: Gravid, nontender Reviewed 28 weeks labs ASSESSMENT/PLAN: 1. 28 weeks gestation of ([facility]) - ICD9: V22.2, ICD10: Z3A.28 (primary diagnosis) 2. Encounter for supervision of high risk in third trimester, antepartum ([facility]) - ICD9: V23.9, ICD10: O09.93 3. Late care ([facility]) - ICD9: V23.7, ICD10: O09.30 4. Multigravida of advanced maternal age in third trimester ([facility]) - ICD9: 659.63, ICD10: O09.523 Genie Wesley MD [facility] 01-01-2025 Miscellaneous Notes S: Melina Ponce is a 34 year old female who presents at 03/20/2025, by Ultrasound for a routine visit. Denies headache, visual changes, chest pain, shortness of breath, vaginal bleeding, leakage of fluid, or dysuria. Feeling well, no complaints. Good movement, No contractions O: See flow sheet Gen: No apparent distress Abd: Gravid, nontender Reviewed 28 weeks labs ASSESSMENT/PLAN: 1. 28 weeks gestation of ([facility]) - ICD9: V22.2, ICD10: Z3A.28 (primary diagnosis) 2. Encounter for supervision of high risk in third trimester, antepartum ([facility]) - ICD9: V23.9, ICD10: O09.93 3. Late care ([facility]) - ICD9: V23.7, ICD10: O09.30 4. Multigravida of advanced maternal age in third trimester ([facility]) - ICD9: 659.63, ICD10: O09.523 Genie Wesley MD documented in this encounter [facility] 01-01-2025 Instructions Milagro Page MA - 01/01/2025 9:42 AM EDT SEQUENTIAL SCREENINGS The [facility] offers sequential screenings for women who are interested in screenings for chromosomal abnormalities and certain defects during a . The sequential screen combines ultrasound and blood tests to determine the risk of chromosomal abnormalities, including Down's Syndrome (Trisomy 21) and Trisomy 18, as well as open neural tube defects including spina bifida. Ultrasound examination is performed between 11 weeks and 13 weeks gestational age. Blood tests are drawn after the ultrasound and again later in the between 15 and 21 weeks gestational age. Please let your physician know if you are interested in this testing. It will require an appointment with our lidar technician. This is not an ultrasound performed by a physician in our office during a routine visit. SIGNS AND SYMPTOMS OF LABOR 1. Contractions every 10 minutes or more often 2. Clear, pink, or brownish fluid (water) leaking from vagina 3. Feeling that baby is pushing down, pressure 4. Low, dull backache 5. Cramps that feel like a period 6. Cramps with or without diarrhea If you notice any of the above symptoms, contact our office at [phone] and ask to speak with a nurse. After hours, you can call doctors registry at [phone] OR call [facility] at [phone] and ask to have the doctor applications packager paged. If you consider this an emergency, dial [phone] or go to your nearest emergency department. NEED HELP? Are you dealing with a violent or abusive relationship? Are you a victim of rape or sexual assult? Call [facility] ([place]) 24 hour Crisis Hotline: 896.451.6137 or 669-685-4050. MANUAL Your Guide to a Healthy manual is now on-line. Visit [email or web address] to download your free copy documented in this encounter [facility] 12-19-2024 Progress note Formatting of t his note might be different from the original. MARIZOL-S: Melina Ponce is a 34 year old female who presents at 27w0d with LADONNA:03/20/2025, by Ultrasound for a routine visit. Denies headache, visual changes, chest pain, shortness of breath, vaginal bleeding, leakage of fluid, or dysuria. Feeling well, no complaints. O: See flow sheet Gen: No apparent distress Abd: Gravid, nontender S=D, 26lb TWG ASSESSMENT/PLAN: 1. Encounter for supervision of high risk in second trimester, antepartum - Continue PNV - Continue ASA - 1 hour GCT, CBC, and RPR today - TDAP declines - LARC form reviewed and signed. Patient declines. Planning vasectomy for partner, information provided - Depression screen negative - Opioid screen negative - plan form discussed and given to patient. Patient desires unmedicated 2. 27 weeks gestation of 3. Multigravida of advanced maternal age in third trimester -35 at delivery, no testing 4. Late care - PTL precautions and kick counts reviewed - RTO- 2 weeks or sooner if needed Acacia Suarez APRN.CNM [facility] 12-19-2024 Miscellaneous Notes MARIZOL-S: Melina Ponce is a 34 year old female who presents at 27w0d with LADONNA:03/20/2025, by Ultrasound for a routine visit. Denies headache, visual changes, chest pain, shortness of breath, vaginal bleeding, leakage of fluid, or dysuria. Feeling well, no complaints. O: See flow sheet Gen: No apparent distress Abd: Gravid, nontender S=D, 26lb TWG ASSESSMENT/PLAN: 1. Encounter for supervision of high risk in second trimester, antepartum - Continue PNV - Continue ASA - 1 hour GCT, CBC, and RPR today - TDAP declines - LARC form reviewed and signed. Patient declines. Planning vasectomy for partner, information provided - Depression screen negative - Opioid screen negative - plan form discussed and given to patient. Patient desires unmedicated 2. 27 weeks gestation of 3. Multigravida of advanced maternal age in third trimester -35 at delivery, no testing 4. Late care - PTL precautions and kick counts reviewed - RTO- 2 weeks or sooner if needed Acacia Suarez APRN.CNM documented in this encounter [facility] 12-19-2024 Note HNO ID: [id number] Author: ACACIA SUAREZ APRN.CNM Service: ? Author Type: High Raw Sugar Boiler Type: Progress Notes Filed: 12/19/2024 08:24 Note Text: MARIZOL- [facility] 12-19-2024 History of Presen t illness Narrative MARIZOL- documented in this encounter [facility] 12-19-2024 Instructions Acacia Suarez APRN.CNM - 12/19/2024 7:52 AM EDT Vasectomy is a simple, safe operation that involves interrupting the tubes call the vas deferens that transport sperm. Vasectomy is a one-time procedure that provides permanent sterilization. The procedure is performed in the office under a local anesthetic. Most men are recovered within a few days of the procedure. To schedule a consultation call [phone] or to learn more about vasectomy, visit [email or web address] COUNTING YOUR BABY'S MOVEMENTS Your Baby's regular movements are a sign of good health. Though babies may sleep for up to an hour, most of the time your baby is active and moving. On average, a healthy baby kicks or moves at least 10 times within a two-hour period. An easy way to check the health of your baby is to keep track of your baby's movements once a day (we call it kick counts). We think it is best to begin kick counts at 28 weeks of and continue once a day until your baby's . Please follow the directions below and record your baby's movements every day. Bring this Kick Count Record with you to all of your visits. How to count and record your baby's movements: Pick a time once a day to record your baby's movements. Your baby may be most active when you are at rest. Many women find after a meal to be the best time to record their baby's movements. Sit in a comfortable position and place your hands, palms down, on your baby. When you are ready to begin counting, look at the time. [place]ten the start time on the Kick Count Record. Count each time you feel your baby kick, move, roll, flutter, or swish. Continue counting until your baby has moved ten times. Colten the end time on the Kick Count Record. How many minutes did it take your baby to move ten times? Record this number in the box. If you do not count ten movements in two hours or less, call your health care provider right away for further instructions Day Date Day Date Day Date Start Start Start End End End Minutes to reach 10 kicks Minutes to reach 10 kicks Minutes to reach 10 kicks SIGNS AND SYMPTOMS OF LABOR 1. Contractions every 10 minutes or more often 2. Clear, pink, or brownish fluid (water) leaking from vagina 3. Feeling that baby is pushing down, pressure 4. Low, dull backache 5. Cramps that feel like a period 6. Cramps with or without diarrhea If you notice any of the above symptoms, contact our office at [phone] and ask to speak with a nurse. After hours, you can call doctors registry at [phone] OR call [facility] at [phone] and ask to have the doctor applications packager paged. If you consider this an emergency, dial [phone] or go to your nearest emergency department. NEED HELP? Are you dealing with a violent or abusive relationship? Are you a victim of rape or sexual assult? Call [facility] ([place]) 24 hour Crisis Hotline: 218.840.9386 or 455-010-1399. MANUAL Your Guide to a Healthy manual is now on-line. Visit [email or web address] to download your free copy documented in this encounter [facility] 11-06-2024 Progress note Formatting of t his note might be different from the original. here today for NOB. Patient is estimated 16 weeks gestation and this is first visit. Patient did not know she was until 2 weeks ago. TAUS completed and gestational age at 20 w 6 days. LADONNA updated. Ellen Maldonado to room for verification measurements. Tamera Velazco APRN.CNM [facility] 11-06-2024 Miscellaneous Notes here today for NOB. Patient is estimated 16 weeks gestation and this is first visit. Patient did not know she was until 2 weeks ago. TAUS completed and gestational age at 20 w 6 days. LADONNA updated. Ellen Maldonado to room for verification measurements. Tamera Velazco APRN.CNM documented in this encounter [facility] 11-06-2024 Note HNO ID: [id number] Author: TAMERA VELAZCO APRN.CNM Service: ? Author Type: High Raw Sugar Boiler Type: Progress Notes Filed: 11/06/2024 10:32 Note Text: INITIAL OB ASSESSMENT HPI: Melina is a 34 year old White here to establish Obstetrical Care. Patient's last menstrual period was 07/17/2024 (approximate). from OB Dating Form. was unplanned but accepted Complaints: No OB History Gravida2 Para0 Term0 Preterm0 AB0 Living1 SAB0 IAB0 Ectopic0 Multiple0 Live Births0 Previous history: Prior : No History of 4th degree laceration: NA History of shoulder dystocia: No History of Hypertensive disorders including pre-eclampsia or gestational hypertension: No History of gestational diabetes: No Patient's Risk Screening for delivery: Have you had a prior segura between 20w and 36w6d? No How many pregnancies have you had before? 1 Did you have a previous baby with a GBS Infection? No Please select all that apply for any prior : N/A MEDICAL/PSYCHOSOCIAL HISTORY: History of hemorrhage or bleeding concerns: No Thyroid Disease: No History of chronic hypertension: No History of pre-existing diabetes: No No results found for: ABORHD BMI 26.34 kg/(m2) Last Pap: 12/17/2023 History of abnormal pap: No Prior treatment for cervical dysplasia: N/A. Last HPV: History of STDs: N/A Partner History of STDs: None Did you have a partner with Herpes? No Tobacco use: No E-Cigarette/Vaping Use: No Caffeine use: Yes Drug use: No Alcohol use: No Multivitamin with Folic acid: Would refuse blood transfusion if medically necessary: No Social Needs: How often does this describe you? I don't have enough money to pay my bills: Never Within the past 12 months, have you worried that your food would run out before you had money to buy more? Never In the past 12 months, has lack of reliable transportation kept you from going to medical appointments or work, or from getting things needed for daily living? Never In the past 12 months, have you had any concerns about having a place to live, or about the condition or quality of your housing? Never Would you like more information on any of the following (please check all that apply)? Centering (group care classes) Social History: Do you have any history of depression, anxiety, PTSD, or other mood problems? No Do you have a history of abuse or trauma that may impact your experience? No Are you currently employed? Yes Depression/Anxiety Screening: denies symptoms of depression. OB Depression and Anxiety Screening- This Encounter Over the past 2 weeks have you felt down, depressed, or hopeless? Negative Over the past two weeks, have you felt little interest or pleasure in doing things?? Negative Feeling nervous, anxious or on edge 0-Not at all Not being able to stop or control worrying 0-Not al all Anxiety Pre-Screening Total (If >/= 3 additional questions will be reviewed) 0 Genetic Screening: Partner present: Yes Patient verbalized knowledge of partner family health history: Yes Do you or your partner have any personal or family history of defects not previously discussed: No Do you have history of a complicated by anomaly, genetic condition, or demise: No Preeclampsia Risk Screening: Screening for prevention of preeclampsia: High risk factors: None Moderate risk ractors: Age 35 years or older OB Risk Screening: Completed, no positive findings documented. 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 No past surgical history on file. No current outpatient medications on file. No current facility-administered medications for this visit. Allergies As of Date: 11/06/2024 (No Known Allergies) Fully Assessed 04/09/2020 Does patient have penicillin allergy: No REVIEW OF SYSTEMS: GENERAL: Negative for: Fever or Chills and Positive for: Fatigue HEENT: Negative for: Headache, Impaired Vision, Ringing in Ears, Nosebleeds NECK: Negative for: Swelling, Pain, Stiffness RESPIRATORY: Negative for: Cough, Shortness of breath, Wheezing GASTROINTESTINAL: Negative for: Heartburn, Constipation, Diarrhea, Blood in stool, Vomiting MUSCULOSKELETAL: Negative for: Muscle or joint pain, stiffness, Joint swelling NEUROLOGIC/PSYCHIATRIC: Negative for: Weakness, Paralysis, Numbness, Tingling, Tremor, Anxiety, Depression, Memory loss SKIN: Negative for: Rash, Itching GENITOURINARY: Negative for: vaginal itching, vaginal discharge, hematuria or dysuria and Positive for: urinary frequency SENSITIVE EXAM: The sensitive examination was discussed with the Patient or Patient's Authorized Commodities Requirements Analyst. As applicable, any other physician, advance practice provider, medical student, or other healt (more content not included)... [facility] 11-06-2024 History of Presen t illness Narrative INITIAL OB ASSESSMENT HPI: Melina is a 34 year old White here to establish Obstetrical Care. Patient's last menstrual period was 07/17/2024 (approximate). from OB Dating Form. was unplanned but accepted Complaints: No OB History Gravida2 Para0 Term0 Preterm0 AB0 Living1 SAB0 IAB0 Ectopic0 Multiple0 Live Births0 Previous history: Prior : No History of 4th degree laceration: NA History of shoulder dystocia: No History of Hypertensive disorders including pre-eclampsia or gestational hypertension: No History of gestational diabetes: No Patient's Risk Screening for delivery: Have you had a prior segura between 20w and 36w6d? No How many pregnancies have you had before? 1 Did you have a previous baby with a GBS Infection? No Please select all that apply for any prior : N/A MEDICAL/PSYCHOSOCIAL HISTORY: History of hemorrhage or bleeding concerns: No Thyroid Disease: No History of chronic hypertension: No History of pre-existing diabetes: No No results found for: ABORHD BMI 26.34 kg/(m^2) Last Pap: 12/17/2023 History of abnormal pap: No Prior treatment for cervical dysplasia: N/A. Last HPV: History of STDs: N/A Partner History of STDs: None Did you have a partner with Herpes? No Tobacco use: No E-Cigarette/Vaping Use: No Caffeine use: Yes Drug use: No Alcohol use: No Multivitamin with Folic acid: Would refuse blood transfusion if medically necessary: No Social Needs: How often does this describe you? I don't have enough money to pay my bills: Never Within the past 12 months, have you worried that your food would run out before you had money to buy more? Never In the past 12 months, has lack of reliable transportation kept you from going to medical appointments or work, or from getting things needed for daily living? Never In the past 12 months, have you had any concerns about having a place to live, or about the condition or quality of your housing? Never Would you like more information on any of the following (please check all that apply)? Centering (group care classes) Social History: Do you have any history of depression, anxiety, PTSD, or other mood problems? No Do you have a history of abuse or trauma that may impact your experience? No Are you currently employed? Yes Depression/Anxiety Screening: denies symptoms of depression. OB Depression and Anxiety Screening- This Encounter Over the past 2 weeks have you felt down, depressed, or hopeless? Negative Over the past two weeks, have you felt little interest or pleasure in doing things? Negative Feeling nervous, anxious or on edge 0-Not at all Not being able to stop or control worrying 0-Not al all Anxiety Pre-Screening Total (If >/= 3 additional questions will be reviewed) 0 Genetic Screening: Partner present: Yes Patient verbalized knowledge of partner family health history: Yes Do you or your partner have any personal or family history of defects not previously discussed: No Do you have history of a complicated by anomaly, genetic condition, or demise: No Preeclampsia Risk Screening: Screening for prevention of preeclampsia: High risk factors: None Moderate risk ractors: Age 35 years or older OB Risk Screening: Completed, no positive findings documented. 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 No past surgical history on file. No current outpatient medications on file. No current facility-administered medications for this visit. Allergies As of Date: 11/06/2024 (No Known Allergies) Fully Assessed 04/09/2020 Does patient have penicillin allergy: No REVIEW OF SYSTEMS: GENERAL: Negative for: Fever or Chills and Positive for: Fatigue HEENT: Negative for: Headache, Impaired Vision, Ringing in Ears, Nosebleeds NECK: Negative for: Swelling, Pain, Stiffness RESPIRATORY: Negative for: Cough, Shortness of breath, Wheezing GASTROINTESTINAL: Negative for: Heartburn, Constipation, Diarrhea, Blood in stool, Vomiting MUSCULOSKELETAL: Negative for: Muscle or joint pain, stiffness, Joint swelling NEUROLOGIC/PSYCHIATRIC: Negative for: Weakness, Paralysis, Numbness, Tingling, Tremor, Anxiety, Depression, Memory loss SKIN: Negative for: Rash, Itching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 Pulse 65 Wt 152 lb (68.9 kg) BMI 25.29 kg/m Smoking Status Never Smoker Physical Exam Vitals and nursing note reviewed. 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 Constitutional: General: She is not in acute distress. Appearance: Normal appearance. She is normal weight. She is not ill-appearing. HENT: Head: Normocephalic and atraumatic. Cardiovascular: Rate and Rhythm: Normal rate and regular rhythm. Heart sounds: Normal heart sounds. Pulmonary: Effort: Pulmonary effort is normal. Breath sounds: Normal breath sounds. Chest: Chest wall: No mass. Breasts: Breasts are symmetrical. Right: Normal. No axillary adenopathy. Left: Normal. No axillary adenopathy. Abdominal: General: There is no distension. Palpations: Abdomen is soft. There is no mass. Musculoskeletal: General: Normal range of motion. Cervical back: Normal range of motion. Lymphadenopathy: Upper Body: Right upper body: No axillary adenopathy. Left upper body: No axillary adenopathy. Skin: General: Skin is warm and dry. Neurological: General: No focal deficit present. Mental Status: She is alert and oriented to person, place, and time. Psychiatric: Mood and Affect: Mood normal. Behavior: Behavior normal. Diagnosis/Plan: Melina was seen today for annual exam. Diagnoses and all orders for this visit: Well woman exam with routine gynecological exam Encouraged annual [employer] Exams Cervical cancer screening Comments: 09/09/2020: Last pap smear ASCUS HRHPV negative Next pap smear is due on 09/10/2023 We talked about the continuum of care in the screening of cervical cancer as per ASCCP guidelines. Encounter for breast cancer screening using non-mammogram modality CBE done today Did teaching on self breast awareness Encouraged monthly self breast exams and annual mammograms starting at age 40 Answered all of patient's questions and she verbalized understanding Shared decision making; patient in agreement Lisa Dias MD 11/13/2021 documented in this encounter [facility] Evaluation note Diagnosis Well woman exam with routine gynecological exam- Primary Routine gynecological examination Cervical cancer screening Screening for malignant neoplasm of the cervix Encounter for breast cancer screening using non-mammogram modality [facility] Diagnosis Routine medical exam- Primary Routine general medical examination at a [facility] care facility Poison ray dermatitis Contact dermatitis and other eczema due to plants (except food) Tendonitis of left rotator cuff [facility] Diagnosis Acute right ankle pain- Primary Acute right ankle pain [facility] Diagnosis Acute right ankle pain [facility] Diagnosis Well woman exam with routine gynecological exam- Primary Routine gynecological examination Encounter for breast cancer screening using non-mammogram modality Cervical cancer screening Screening for malignant neoplasm of the cervix [facility] Diagnosis Gastroesophageal reflux disease, unspecified whether esophagitis present- Primary [facility] Diagnosis with uncertain dates in first trimester (HCC)- Primary 20 weeks gestation of ([facility]) state, incidental Screening examination for STD (sexually transmitted disease) Screening examination for venereal disease Multigravida of advanced maternal age in second trimester ([facility]) Encounter for supervision of high risk in second trimester, antepartum ([facility]) Late care ([facility]) Insufficient care [facility] Diagnosis Encounter for supervision of high risk in second trimester, antepartum ([facility])- Primary 27 weeks gestation of ([facility]) state, incidental Multigravida of advanced maternal age in second trimester (HCC) Late care ([facility]) Insufficient care Multigravida of advanced maternal age in third trimester ([facility]) [facility] Diagnosis 28 weeks gestation of ([facility])- Primary state, incidental Encounter for supervision of high risk in third trimester, antepartum (HCC) Late care ([facility]) Insufficient care Multigravida of advanced maternal age in third trimester (HCC) [facility] Diagnosis Encounter for supervision of high risk in third trimester, antepartum (HCC)- Primary 30 weeks gestation of ([facility]) state, incidental Multigravida of advanced maternal age in third trimester (HCC) Uterine size-date discrepancy, third trimester (HCC) [facility] Diagnosis Encounter for ultrasound to check growth ([facility])- Primary Encounter for routine screening for malformation using ultrasonics Multigravida of advanced maternal age in third trimester (HCC) Uterine size-date discrepancy, third trimester (HCC) 32 weeks gestation of ([facility]) state, incidental [facility] Diagnosis Encounter for supervision of high risk in third trimester, antepartum (HCC)- Primary 34 weeks gestation of ([facility]) state, incidental Multigravida of advanced maternal age in third trimester (HCC) Late care ([facility]) Insufficient care Uterine size-date discrepancy, third trimester ([facility]) [facility]* Diagnosis Encounter for supervision of high risk in third trimester, antepartum (HCC)- Primary Uterine size-date discrepancy, third trimester (HCC) 36 weeks gestation of ([facility]) state, incidental Multigravida of advanced maternal age in third trimester ([facility]) [facility] Diagnosis Multigravida of advanced maternal age in third trimester (HCC)- Primary Uterine size-date discrepancy, third trimester (HCC) Late care ([facility]) Insufficient care Intrauterine growth restriction (IUGR) affecting care of mother, third trimester, single gestation ([facility]) [facility]* Diagnosis Encounter for supervision of high risk in third trimester, antepartum (HCC)- Primary Multigravida of advanced maternal age in third trimester (HCC) Late care ([facility]) Insufficient care 37 weeks gestation of ([facility]) state, incidental Poor growth affecting management of mother in third trimester, single or unspecified fetus (HCC) growth restriction antepartum (HCC)- Primary 37 weeks gestation of ([facility]) state, incidental [facility]* Diagnosis Encounter for supervision of high risk in third trimester, antepartum (HCC)- Primary Multigravida of advanced maternal age in third trimester (HCC) Late care (HCC) Insufficient care 37 weeks gestation of (HCC) state, incidental Poor growth affecting management of mother in third trimester, single or unspecified fetus (HCC) * Assessment & Plan Note - Maria Elena Chavira MD - 02/27/2025 12:09 PM EDTAssociated Problem(s): Multigravida of advanced maternal age in third trimester (HCC) Orders: URINE OB DIP B/O * Assessment & Plan Note - Maria Elena Chavira MD - 02/27/2025 12:09 PM EDTAssociated Problem(s): Late care (HCC) Orders: URINE OB DIP B/O [facility] Diagnosis Encounter for supervision of high risk in third trimester, antepartum (HCC)- Primary Multigravida of advanced maternal age in third trimester (HCC) Late care (HCC) Insufficient care 37 weeks gestation of (HCC) state, incidental Poor growth affecting management of mother in third trimester, single or unspecified fetus (HCC) Multigravida of advanced maternal age in third trimester (HCC)- Primary 37 weeks gestation of (HCC) state, incidental Encounter for supervision of high risk in third trimester, antepartum (HCC) Poor growth affecting management of mother in third trimester, fetus 1 of multiple gestation (HCC) documented in [facility] Instructions * Patient Instructions - Cheri Jiménez CNP - 02/10/2018 4:50 PM EDT Formatting of this note may be different from the original. Pinkeye: Care Instructions Your Care Instructions Pinkeye is redness and swelling of the eye surface and the conjunctiva (the lining of the eyelid and the covering of the white part of the eye). Pinkeye is also called conjunctivitis. Pinkeye is often caused by infection with bacteria or a virus. Dry air, allergies, smoke, and chemicals are other common causes. Pinkeye often clears on its own in 7 to 10 days. Antibiotics only help if the pinkeye is caused by bacteria. Pinkeye caused by infection spreads easily. If an allergy or chemical is causing pinkeye, it will not go away unless you can avoid whatever is causing it. Follow-up care is a hyde part of your treatment and safety. Be sure to make and go to all appointments, and call your doctor if you are having problems. It's also a good idea to know your test resultsand keep a list of the medicines you take. How can you care for yourself at home? Wash your hands often. Always wash them before and after you treat pinkeye or touch your eyes or face. Use moist cotton or a clean, wet cloth to remove crust. Wipe from the inside corner of the eye to the outside. Use a clean part of the cloth for each wipe. Put cold or warm wet cloths on your eye a few times a day if the eye hurts. Do not wear contact lenses or eye makeup until the pinkeye is gone. Throw away any eye makeup you were using when you got pinkeye. Clean your contacts and storage case. If you wear disposable contacts, use a new pair when your eye has cleared and it is safe to wear contacts again. If the doctor gave you antibiotic ointment or eyedrops, use them as directed. Use the medicine for as long as instructed, even if your eye starts looking better soon. Keep the bottle tip clean, and do not let it touch the eye area. To put in eyedrops or ointment: Tilt your head back, and pull your lower eyelid down with one finger. Drop or squirt the medicine inside the lower lid. Close your eye for 30 to 60 seconds to let the drops or ointment move around. Do not touch the ointment or dropper tip to your eyelashes or any other surface. Do not share towels, pillows, or washcloths while you have pinkeye. When should you call for help? Call your doctor now or seek immediate medical care if: ? You have pain in your eye, not just irritation on the surface. ? You have a change in vision or loss of vision. ? You have an increase in discharge from the eye. ? Your eye has not started to improve or begins to get worse within 48 hours after you start using antibiotics. ? Pinkeye lasts longer than 7 days. ?Watch closely for changes in your health, and be sure to contact your doctor if you have any problems. Where can you learn more? Log into your personal health record on https://[employer] and enter Y392 in the Education box to learn more about Pinkeye: Care Instructions. Current as of: May 17, 2017 Content Version: 11.6 [id number] [employer]. Care instructions adapted under license by your healthcare professional. If you have questions about a medical condition or this instruction, always ask your healthcare professional. [employer] disclaims any warranty or liability for your use of this information. CAN TAKE OTC CLARITIN OR ZYRTEC IF DESIRES FOR ANY ALLERGY SYMPTOMS (SNEEZING, WATERY ITCHY EYES). in this encounter* Patient Instructions* Lisa Dias MD - 09/08/2019 9:30 AM EDT Learning About Control: The Ring What is the ring? The ring is used to prevent . It's a soft plastic ring that you put into your vagina. It'salso called the vaginal ring. The ring releases a regular dose of the hormones estrogen and progestin. These hormones prevent in three ways. They thicken the mucus in the cervix. This makes it hard for sperm to travel into the uterus. They thin the lining of the uterus, which makes it harder for a fertilized egg to attach to the uterus. The hormones also can stop the ovaries from releasing an egg each month (ovulation). The ring protects against for 1 month at a time. You wear one ring for 3 weeks in a row and then go without a ring for 1 week. During this week, you have your period. Your period may be very light. How well does it work? In the first year of use: When the ring is used exactly as directed, fewer than 1 woman out of 100 has an unplanned . When the ring is not used exactly as directed, 9 or more women out of 100 have an unplanned . What are the advantages of the ring? The ring is more effective for preventing than barrier methods of control, such as the condom or diaphragm. It prevents for up to 1 month at a time. It may reduce acne, heavy bleeding and cramping, and symptoms of premenstrual syndrome. The ring is convenient. You insert it only 1 time each month. You do not have to interrupt sex to protect against . What are the disadvantages of the ring? The ring doesn't protect against sexually transmitted infections (STIs), such as herpes or HIV/AIDS. If you aren't sure if your sex partner might have an STI, use a condom to protect against infection. The ring may cause changes in your period. You may have little bleeding, skipped periods, or spotting. It may cause mood changes, less interest in sex, or weight gain. The ring contains estrogen. It may not be right for you if you have certain health problems or concerns. You must remember to change the ring on schedule. Where can you learn more? Go to http://www.[employer].edu/patiented. Enter H169 in the search box to learn more about 'Learning About Control: The Ring.' Interested in seeing a video go to https://[employer].edu/videolibrary to see all video content. Current as of: November 23, 2018 Content Version: 12.4 [employer]. Care instructions adapted under license by your healthcare professional. If you have questions about a medical condition or this instruction, always ask your healthcare professional. [employer] disclaims any warranty or liability for your use of this information. documented in this encounter* Patient Instructions* Garrett Ortez CNP - 07/27/2019 4:53 PM EST Upper Respiratory Infection (Cold): Care Instructions Your Care Instructions An upper respiratory infection, or URI, is an infection of the nose, sinuses, or throat. URIs are spread by coughs, sneezes, and direct contact. The common cold is the most frequent kind of URI. The flu and sinus infections are other kinds of URIs. Almost all URIs are caused by viruses. Antibiotics won't cure them. But you can treat most infections with home care. This may include drinking lots of fluids and taking yizv-xgy-otmyweo pain medicine. You will probably feel better in 4 to 10 days. The doctor has checked you carefully, but problems can develop later. If you notice any problems ornew symptoms, get medical treatment right away. Follow-up care is a hyde part of your treatment and safety. Be sure to make and go to all appointments, and call your doctor if you are having problems. It's also a good idea to know your test resultsand keep a list of the medicines you take. How can you care for yourself at home? To prevent dehydration, drink plenty of fluids, enough so that your urine is light yellow or clear like water. Choose water and other caffeine-free clear liquids until you feel better. If you have kidney, heart, or liver disease and have to limit fluids, talk with your doctor before you increase the amount of fluids you drink. Take an ohne-ahz-eokepxw pain medicine, such as acetaminophen (Tylenol), ibuprofen (Advil, Motrin),or naproxen (Aleve). Read and follow all instructions on the label. Before you use cough and cold medicines, check the label. These medicines may not be safe for youngchildren or for people with certain health problems. Be careful when taking dcbo-rtj-vrarwfd cold or flu medicines and Tylenol at the same time. Many ofthese medicines have acetaminophen, which is Tylenol. Read the labels to make sure that you are nottaking more than the recommended dose. Too much acetaminophen (Tylenol) can be harmful. Get plenty of rest. Do not smoke or allow others to smoke around you. If you need help quitting, talk to your doctor about stop-smoking programs and medicines. These can increase your chances of quitting for good. When should you call for help? Call 911 anytime you think you may need emergency care. For example, call if: You have severe trouble breathing. Call your doctor now or seek immediate medical care if: You seem to be getting much sicker. You have new or worse trouble breathing. You have a new or higher fever. You have a new rash. Watch closely for changes in your health, and be sure to contact your doctor if: You have a new symptom, such as a sore throat, an earache, or sinus pain. You cough more deeply or more often, especially if you notice more mucus or a change in the color of your mucus. You do not get better as expected. Where can you learn more? Log into your personal health record on https://[employer]D and enter K520 in the Education box to learn more about Upper Respiratory Infection (Cold): Care Instructions. Current as of: December 04, 2018 Content Version: 12.3 [id number] [employer]. Care instructions adapted under license by your healthcare professional. If you have questions about a medical condition or this instruction, always ask your healthcare professional. [employer] disclaims any warranty or liability for your use of this information. Cough: Care Instructions Your Care Instructions A cough is your body's response to something that bothers your throat or airways. Many things can cause a cough. You might cough because of a cold or the flu, bronchitis, or asthma. Smoking, postnasal drip, allergies, and stomach acid that backs up into your throat also can cause coughs. A cough is a symptom, not a disease. Most coughs stop when the cause, such as a cold, goes away. You can take a few steps at home to cough less and feel better. Follow-up care is a hyde part of your treatment and safety. Be sure to make and go to all appointments, and call your doctor if you are having problems. It's also a good idea to know your test resultsand keep a list of the medicines you take. How can you care for yourself at home? Drink lots of water and other fluids. This helps thin the mucus and soothes a dry or sore throat. Honey or lemon juice in hot water or tea may ease a dry cough. Take cough medicine as directed by your doctor. Prop up your head on pillows to help you breathe and ease a dry cough. Try cough drops to soothe a dry or sore throat. Cough drops don't stop a cough. Medicine-flavored cough drops are no better than candy-flavored drops or hard candy. Do not smoke. Avoid secondhand smoke. If you need help quitting, talk to your doctor about stop-smoking programs and medicines. These can increase your chances of quitting for good. When should you call for help? Call 911 anytime you think you may need emergency care. For example, call if: You have severe trouble breathing. Call your doctor now or seek immediate medical care if: You cough up blood. You have new or worse trouble breathing. You have a new or higher fever. You have a new rash. Watch closely for changes in your health, and be sure to contact your doctor if: You cough more deeply or more often, especially if you notice more mucus or a change in the color of your mucus. You have new symptoms, such as a sore throat, an earache, or sinus pain. You do not get better as expected. Where can you learn more? Log into your personal health record on https://[employer]D and enter D279 in the Education box to learn more about Cough: Care Instructions. Current as of: December 04, 2018 Content Version: 12.3 [id number] [employer]. Care instructions adapted under license by your healthcare professional. If you have questions about a medical condition or this instruction, always ask your healthcare professional. [employer] disclaims any warranty or liability for your use of this information. Cough: Care Instructions Your Care Instructions A cough is your body's response to something that bothers your throat or airways. Many things can cause a cough. You might cough because of a cold or the flu, bronchitis, or asthma. Smoking, postnasal drip, allergies, and stomach acid that backs up into your throat also can cause coughs. A cough is a symptom, not a disease. Most coughs stop when the cause, such as a cold, goes away. You can take a few steps at home to cough less and feel better. Follow-up care is a hyde part of your treatment and safety. Be sure to make and go to all appointments, and call your doctor if you are having problems. It's also a good idea to know your test resultsand keep a list of the medicines you take. How can you care for yourself at home? Drink lots of water and other fluids. This helps thin the mucus and soothes a dry or sore throat. Honey or lemon juice in hot water or tea may ease a dry cough. Take cough medicine as directed by your doctor. Prop up your head on pillows to help you breathe and ease a dry cough. Try cough drops to soothe a dry or sore throat. Cough drops don't stop a cough. Medicine-flavored cough drops are no better than candy-flavored drops or hard candy. Do not smoke. Avoid secondhand smoke. If you need help quitting, talk to your doctor about stop-smoking programs and medicines. These can increase your chances of quitting for good. When should you call for help? Call 911 anytime you think you may need emergency care. For example, call if: You have severe trouble breathing. Call your doctor now or seek immediate medical care if: You cough up blood. You have new or worse trouble breathing. You have a new or higher fever. You have a new rash. Watch closely for changes in your health, and be sure to contact your doctor if: You cough more deeply or more often, especially if you notice more mucus or a change in the color of your mucus. You have new symptoms, such as a sore throat, an earache, or sinus pain. You do not get better as expected. Where can you learn more? Log into your personal health record on https://[employer]D and enter D279 in the Education box to learn more about Cough: Care Instructions. Current as of: December 04, 2018 Content Version: 12.3 [id number] [employer]. Care instructions adapted under license by your healthcare professional. If you have questions about a medical condition or this instruction, always ask your healthcare professional. [employer] disclaims any warranty or liability for your use of this information. [id number] if you develop a fever, ear pain or purulent nasal drainage or sputum for ATB. Follow upin three to five days if unimproved. Go to the Emergency Department if symptoms worsen. documented in this encounter Assessments Diagnosis Bacterial conjunctivitis of both eyes - Primary Diagnosis Encounter for other general counseling or advice on contraception Cervical cancer screening Screening for malignant neoplasm of the cervix Screening for breast cancer Breast screening, unspecified Diagnosis Well woman exam with routine gynecological exam- Primary Routine gynecological examination Cervical cancer screening Screening for malignant neoplasm of the cervix Encounter for screening mammogram for malignant neoplasm of breast Other screening mammogram High risk HPV infection Human papillomavirus in conditions classified elsewhere and of unspecified site Encounter for surveillance of vaginal ring hormonal contraceptive device Diagnosis Upper respiratory tract infection, unspecified type Summary Purpose Family History No Family History Records FoundNo Family History Records FoundNo Family History Records FoundNo Family History Records FoundNo Family History Records Found Advance Directives No Advanced Directives Records FoundDocuments on File Type Date Recorded 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 female who presents today for had concerns including Annual Exam (New pt. Last pap 07/16/2015.Denies hx of abnormal paps. Reports normal menstrual cycles. Considering control.). Has been on the nuvaring in the past and will like to get back on it. No urinary symptoms nor pelvic pain reported. LMP: Patient's last menstrual period was 08/20/2019 (approximate). No results found for: PAPSMEAR OB HISTORY: OB History Para Term AB Living 1 1 1 1 SAB TAB Ectopic Molar Multiple Live Births 1 # Outcome Date GA Lbr Douglas/2nd Weight Sex Delivery Anes PTL Lv 1 Term 04/21/11 39w0d 7 lb 12 oz (3.515 kg) M Vag-Spont N DEJAN HISTORY/ALLERGIES No Known Allergies No past medical history on file. Past Surgical History: Procedure Laterality Date TONSILLECTOMY ADENOIDECTOMY Social History Tobacco Use Smoking status: Never Smoker Smokeless tobacco: Never Used Substance Use Topics Alcohol use: Yes Comment: rarely Drug use: No Family History Problem Relation Age of Onset Hypertension Mother Lipid Disorder Mother Stroke Father Migraines Brother Hypertension Maternal Grandmother Lipid Disorder Maternal Grandmother Diabetes Maternal Grandmother Hypertension Maternal Grandfather Lipid Disorder Maternal Grandfather Prostate Cancer Maternal Grandfather Current Outpatient Medications: ethinyl estradiol-etonogestrel (NuvaRing) 0.12-0.015 MG/24HR Ring ring, Insert 1 Each vaginally As directed. Insert and leave in continuously for 3 weeks; Remove for 1 week; repeat with new ring., Disp: 3 Each, Rfl: 4 ROS Review of Systems Constitutional: Negative. HENT: Negative. Eyes: Negative. Respiratory: Negative. Cardiovascular: Negative. Gastrointestinal: Negative. Genitourinary: Negative. Musculoskeletal: Negative. Skin: Negative. Neurological: Negative. Psychiatric/Behavioral: Negative. All other systems reviewed and are negative. EXAM Blood pressure 135/80, pulse 84, height 5' 5 (1.651 m), weight 154 lb 1.6 oz (69.9 kg), last menstrual period 08/20/2019, not currently . Physical Exam Vitals signs and nursing note reviewed. 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 Constitutional: Appearance: Normal appearance. She is normal weight. She is not ill-appearing. HENT: Head: Normocephalic and atraumatic. Neck: Musculoskeletal: Normal range of motion. Cardiovascular: Rate and Rhythm: Normal rate. Pulmonary: Effort: Pulmonary effort is normal. Chest: Chest wall: No mass. Breasts: Breasts are symmetrical. Right: Normal. Left: Normal. Abdominal: General: Abdomen is flat. There is no distension. Palpations: Abdomen is soft. There is no mass. Tenderness: There is no abdominal tenderness. Genitourinary: General: Normal vulva. Exam position: Lithotomy position. Pubic Area: No rash. Labia: Right: No rash, tenderness or lesion. Left: No rash, tenderness or lesion. Vagina: Normal. No vaginal discharge. Cervix: Normal. Uterus: Normal. Musculoskeletal: Normal range of motion. Lymphadenopathy: Upper Body: Right upper body: No supraclavicular, axillary or pectoral adenopathy. Left upper body: No supraclavicular, axillary or pectoral adenopathy. Skin: General: Skin is warm and dry. Neurological: General: No focal deficit present. Mental Status: She is alert and oriented to person, place, and time. Psychiatric: Behavior: Behavior normal. Diagnosis/Plan: Melina was seen today for annual exam. 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 I shared with patient that the results will be back within a week and I will review them and releasethem to her on Icerahart. If there are any abnormal results, she will hear from us and we will followthe algorithms set forth by the ASCCP guidelines. Screening for breast cancer CBE done today Encouraged monthly self breast exams and annual mammograms starting at age 40 Encounter for other general counseling or advice on contraception - POCT URINE We talked about alternative forms of control and patient shared that she had previously been on the nuvaring and it worked well for her. She will like to try it again. Risks, benefits and what to expect on combined control were discussed and patient verbalized understanding Encounter for initial prescription of vaginal ring hormonal contraceptive - ethinyl estradiol-etonogestrel (NuvaRing) 0.12-0.015 MG/24HR Ring ring; Insert 1 Each vaginally As directed. Insert and leave in continuously for 3 weeks; Remove for 1 week; repeat with new ring. Answered all of patient's questions and she verbalized understanding Shared decision making; patient in agreement Lisa Dias MD 09/08/2019 documented in this encounter* Lisa Dias MD - 09/09/2020 1:30 PM EDT DULCE Ponce is a 30 y.o. 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 Last pap 09/08/19 NIL HPV+.) Does do her self breast exams Likes the NuvaRing and will like to continue on it. No urinary symptoms nor pelvic pain reported today LMP: Patient's last menstrual period was 09/02/2020 (exact date). No results found for: PAPSMEAR OB HISTORY: OB History Para Term AB Living 1 1 1 1 SAB TAB Ectopic Molar Multiple Live Births 1 # Outcome Date GA Lbr Douglas/2nd Weight Sex Delivery Anes PTL Lv 1 Term 04/21/11 39w0d 7 lb 12 oz (3.515 kg) M Vag-Spont N DEJAN HISTORY/ALLERGIES No Known Allergies No past medical history on file. Past Surgical History: Procedure Laterality Date TONSILLECTOMY ADENOIDECTOMY Social History Tobacco Use Smoking status: Never Smoker Smokeless tobacco: Never Used Substance Use Topics Alcohol use: Yes Comment: rarely Drug use: No Family History Problem Relation Age of Onset Hypertension Mother Lipid Disorder Mother Stroke Father Migraines Brother Hypertension Maternal Grandmother Lipid Disorder Maternal Grandmother Diabetes Maternal Grandmother Hypertension Maternal Grandfather Lipid Disorder Maternal Grandfather Prostate Cancer Maternal Grandfather Current Outpatient Medications: ethinyl estradiol-etonogestrel (NuvaRing) 0.12-0.015 MG/24HR Ring ring, Insert 1 Each vaginally As directed. Insert and leave in continuously for 3 weeks; Remove for 1 week; repeat with new ring., Disp: 3 Each, Rfl: 4 ROS Review of Systems Constitutional: Negative. HENT: Negative. Eyes: Negative. Respiratory: Negative. Cardiovascular: Negative. Gastrointestinal: Negative. Genitourinary: Negative. Musculoskeletal: Negative. Skin: Negative. Neurological: Negative. Psychiatric/Behavioral: Negative. All other systems reviewed and are negative. EXAM BP 128/79 Pulse 69 Ht 5' 5 (1.651 m) Wt 149 lb (67.6 kg) BMI 24.79 kg/m Smoking Status Never Smoker Physical Exam Vitals and nursing note reviewed. 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 Constitutional: Appearance: Normal appearance. She is not ill-appearing. HENT: Head: Normocephalic and atraumatic. Cardiovascular: Rate and Rhythm: Normal rate and regular rhythm. Heart sounds: Normal heart sounds. Pulmonary: Effort: Pulmonary effort is normal. Breath sounds: Normal breath sounds. Chest: Chest wall: No mass. Breasts: Breasts are symmetrical. Right: Normal. Left: Normal. Abdominal: General: Abdomen is flat. Bowel sounds are normal. There is no distension. Palpations: There is no mass. Tenderness: There is no abdominal tenderness. Genitourinary: General: Normal vulva. Exam position: Lithotomy position. Pubic Area: No rash. Labia: Right: No rash, tenderness or lesion. Left: No rash, tenderness or lesion. Vagina: Normal. No vaginal discharge. Cervix: Normal. Uterus: Normal. Musculoskeletal: General: Normal range of motion. Cervical back: Normal range of motion. Lymphadenopathy: Upper Body: Right upper body: No axillary adenopathy. Left upper body: No axillary adenopathy. Skin: General: Skin is warm and dry. Neurological: General: No focal deficit present. Mental Status: She is alert and oriented to person, place, and time. Psychiatric: Mood and Affect: Mood normal. Behavior: Behavior normal. Diagnosis/Plan: Melina was seen today for annual exam. 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 I shared with patient that the results will be back within a week and I will review them and releasethem to her on Icerahart. If there are any abnormal results, she will hear from us and we will followthe algorithms set forth by the ASCCP guidelines. Encounter for screening mammogram for malignant neoplasm of breast CBE done today Encouraged monthly self breast exams and annual mammograms starting at age 40 High risk HPV infection Comments: 09/08/2019: Last pap smear was NIL with HRHPV positive; Negative 16 and 18 Orders: - [facility]ING[facility] CYTOLOGY-CMM OPERATOR, LIQUID BASED Encounter for surveillance of vaginal ring hormonal contraceptive device - ethinyl estradiol-etonogestrel (NuvaRing) 0.12-0.015 MG/24HR Ring ring; Insert 1 Each vaginally As directed. Insert and leave in continuously for 3 weeks; Remove for 1 week; repeat with new ring. NuvaRing Counseling Discussed risks and benefits of NuvaRing. Risks include but are not limited to DVT, stroke, PE, NE,hypertension, and possibly increased risk of breast cancer. Possible side effects includeweight gain and headaches. NuvaRing should be changed every 3 weeks with 1 week off. Contraceptive ring does not protect from STI and condoms should still be used to decrease this risk. Reviewed ACHES warning signs. Answered all of patient's questions and she verbalized understanding Shared decision making; patient in agreement Lisa Dias MD 09/09/2020 documented in this encounter* Garrett Ortez CNP - 07/27/2019 4:42 PM EST PATIENT NAME: Melina Ponce [facility] [address] [place] [id number] : 1990 DATE OF VISIT: 07/27/2019 #: [id number] PROVIDER: Garrett Ortez CNP Chief Complaint Patient presents with Cough since Wednesday. Was sick 2 weeks ago, got better then sick again Nasal Congestion SUBJECTIVE 29 y.o. female presents Cough (since Wednesday. Was sick 2 weeks ago, got better then sick again) and Nasal Congestion Client with cough for a week with runny nose and post nasal drip. No travel. Not . Client was ill for a week [address], headache and cough. States her symptoms improved for a few days and returned. Cough This is a new problem. The current episode started in the past 7 days. The problem has been gradually worsening. The problem occurs hourly (cough is worse at night and morning). The cough is non-productive. Associated symptoms include postnasal drip and rhinorrhea. Pertinent negatives include no chest pain, chills, ear congestion, ear pain, eye redness, fever, headaches, myalgias, nasal congestion, rash, sore throat, shortness of breath, sweats or wheezing. The symptoms are aggravated by lying down. Treatments tried: Tylenol Cold & Sinus, Tylenol Severe, Robitussin Day and Night. Her pastmedical history is significant for bronchitis, environmental allergies and pneumonia. There is no history of asthma, bronchiectasis, COPD or emphysema. MEDICAL ISSUES History reviewed. No pertinent past medical history. There is no problem list on file for this patient. SOCIAL HISTORY Social History Socioeconomic History Marital status: Spouse name: Not on file Number of children: Not on file Years of education: Not on file Highest education level: Not on file Occupational History Not on file Social Needs Financial resource strain: Not on file Food insecurity Worry: Not on file Inability: Not on file Transportation needs Medical: Not on file Non-medical: Not on file Tobacco Use Smoking status: Never Smoker Smokeless tobacco: Never Used Substance and Sexual Activity Alcohol use: Yes Comment: rare Drug use: No Sexual activity: Not on file Lifestyle Physical activity Days per week: Not on file Minutes per session: Not on file Stress: Not on file Relationships Social connections Talks on phone: Not on file Gets together: Not on file Attends anabaptism service: Not on file Active member of club or organization: Not on file Attends meetings of clubs or organizations: Not on file Relationship status: Not on file Other Topics Concern Not on file Social History Narrative Not on file FAMILY HISTORY History reviewed. No pertinent family history. REVIEW OF SYSTEMS Review of Systems Constitutional: Negative for activity change, appetite change, chills, diaphoresis, fatigue and fever. HENT: Positive for postnasal drip and rhinorrhea. Negative for congestion, ear pain, sinus pressure, sinus pain and sore throat. Eyes: Negative for discharge and redness. Respiratory: Positive for cough. Negative for chest tightness, shortness of breath and wheezing. Cardiovascular: Negative for chest pain. Gastrointestinal: Negative for diarrhea, nausea and vomiting. Genitourinary: Negative for difficulty urinating. Normal urination. Musculoskeletal: Negative for arthralgias and myalgias. Skin: Negative for rash. Allergic/Immunologic: Positive for environmental allergies. Neurological: Negative for headaches. MEDICATIONS PRIOR TO VISIT Current Outpatient Medications on File Prior to Visit Medication Sig Dispense Refill kbb-tlwbfibflce-tezmsqzykclwd (SINUTAB) 2-30-500 mg per tablet Take 1 tablet by mouth every 4 (four) hours as needed for allergies. fluticasone (FLONASE) 50 mcg/actuation nasal spray INSTILL 2 SPRAYS EACH NARES QD PRN FOR RELIEF OFALLERGY SYMPTOMS. (Patient not taking: Reported on 07/27/2019 .) 16 g 0 trimethoprim-polymyxin b (POLYTRIM) 10,000 unit- 1 mg/mL Drop ophthalmic solution Apply 1 (one) drop to eye every 4 (four) hours For 7 to 10 day. (Patient not taking: Reported on 07/27/2019 .) 1 Bottle 0 No current facility-administered medications on file prior to visit. ALLERGIES/INTOLERANCES No Known Allergies OBJECTIVE BP 120/76 Pulse 67 Temp 98.8 F (37.1 C) (Oral) Resp 16 Ht 5' 5 Wt 70.3 kg (155 lb) LMP07/26/2019 SpO2 98% No BMI 25.79 kg/m Physical Exam Constitutional: She is oriented to person, place, and time. She appears well- developed and well-nourished. HENT: Head: Normocephalic and atraumatic. Right Ear: Tympanic membrane, external ear and ear canal normal. Left Ear: Tympanic membrane, external ear and ear canal normal. Nose: Mucosal edema present. Right sinus exhibits no maxillary sinus tenderness and no frontal sinus tenderness. Left sinus exhibits no maxillary sinus tenderness and no frontal sinus tenderness. Mouth/Throat: Uvula is midline and mucous membranes are normal. Posterior oropharyngeal erythema present. No oropharyngeal exudate or posterior oropharyngeal edema. Neck: Neck supple. Cardiovascular: Normal rate, regular rhythm and normal heart sounds. Pulmonary/Chest: Effort normal and breath sounds normal. No respiratory distress. She has no wheezes. She has no rales. Lymphadenopathy: She has no cervical adenopathy. Neurological: She is alert and oriented to person, place, and time. Skin: Skin is warm and dry. Psychiatric: She has a normal mood and affect. Nursing note and vitals reviewed. PROCEDURE Procedures Results No results found for this or any previous visit (from the past 168 hour(s)). ASSESSMENT/PLAN (expressed as patient instructions): 1. Upper respiratory tract infection, unspecified type predniSONE (DELTASONE) 20 MG tablet benzonatate (Tessalon Perles) 100 MG capsule fluticasone propionate (FLONASE) 50 mcg/actuation nasal spray No follow-ups on file. ADDITIONAL CLINICAL COMMENTS CLIENT DOES NOT HAVE FLU LIKE SYMPTOMS. SHE IS NON-TOXIC IN NAD.SUSPECT VIRAL ILLNESS. WILL TREAT WITH ATB IF SYMPTOMS WORSEN IN NEXT FEW DAYS WITH FEVER, EAR PAIN, PURULENT SINUS DRAINAGE OR SPUTUM.CLIENT WILL TRIAL SYMPTOMATIC TREATMENT AND CALL IF SYMPTOMS PERSIST AND WORSEN. ORDERS PLACED THIS VISIT No orders of the defined types were placed in this encounter. MEDICATION LIST AT END OF VISIT Current Outpatient Medications Medication Sig Dispense Refill benzonatate (Tessalon Perles) 100 MG capsule Take one or two capsules every 8 hours as needed for cough. Do not chew. . 60 capsule 1 umi-oyzvjlxdoxz-rokeaouymdtdo (SINUTAB) 2-30-500 mg per tablet Take 1 tablet by mouth every 4 (four) hours as needed for allergies. fluticasone (FLONASE) 50 mcg/actuation nasal spray INSTILL 2 SPRAYS EACH NARES QD PRN FOR RELIEF OFALLERGY SYMPTOMS. (Patient not taking: Reported on 07/27/2019 .) 16 g 0 fluticasone propionate (FLONASE) 50 mcg/actuation nasal spray Instill 2 (two) sprays into each nostril daily . 16 g 0 predniSONE (DELTASONE) 20 MG tablet Take 2 tablets daily for 5 days. . 10 tablet 0 trimethoprim-polymyxin b (POLYTRIM) 10,000 unit- 1 mg/mL Drop ophthalmic solution Apply 1 (one) drop to eye every 4 (four) hours For 7 to 10 day. (Patient not taking: Reported on 07/27/2019 .) 1 Bottle 0 No current facility-administered medications for this visit. documented in this encounter Reason for Referral * Contusion; Abrasion Additional Source Comments INFORMATION SOURCE (unrecogn ized section and content) DATE CREATED AUTHOR 07/27/2019 [facility] DATE CREATED AUTHOR AUTHOR'S ORGANIZ ATION 10/13/2022 [facility] DATE CREATED AUTHOR AUTHOR'S ORGANIZ ATION 09/09/2024 [facility] DATE CREATED AUTHOR AUTHOR'S ORGANIZ ATION 03/04/2025 [facility] DATE CREATED AUTHOR AUTHOR'S ORGANIZ ATION 03/04/2025 [facility] Reason for Visit (unrecogniz ed section and content) Reason Comments Annual Exam New pt. Last pap 06/28.Denies hx of abnormal paps. Reports normal menstrual cycles. Considering control. Reason Comments Annual Exam Patient here for praneeth ual exam. Last pap 09/08/19 NIL HPV+. Patient is on the Nuvaring and would like a refill. Reason Comments Cough since Wednesday. Was si ck 2 weeks ago, got better then sick again Nasal Congestion Reason Comments Annual Exam Patient here for praneeth ual. Last pap 09/09/20 ASCUS HPV- Reason Comments Physical Reason Comments Ankle Pain Reason Comments Annual Exam Reason Comments Abdominal Pain Reason Comments Initial OB Visit Reason Onset Date Comments Care 12/19/2024 Reason Onset Date Comments Care 01/01/2025 Reason Onset Date Comments Care 01/15/2025 Reason Comments US Specialty Diagnoses / Procedures Referred By Contac t Referred To Contact [facility] Diagnoses Multigravida of advanced maternal age in third trimester (HCC) Uterine size-date discrepancy, third trimester (HCC) Procedures OBSTETRIC ULTRASOUND WHI US PREG UTERUS AFTER 1ST TRIMEST GESTATION Shane Ferguson APRN.DATA WAREHOUSING MANAGER [place] [address] Phone: tel: fax: [facility] [address] [place] [address] Referral ID Status Reason Start Date Expiration Date V isits Requested Visits Authorized [id number] Closed Auto-Generate d Referral 01/15/2025 01/15/2026 1 1 Reason Onset Date Comments Care 02/12/2025 Reason Onset Date Comments Care 02/21/2025 Specialty Diagnoses / Procedures Referred By Contac t Referred To Contact [facility] Diagnoses Uterine size-date discrepancy, third trimester (HCC) Late care (HCC) Procedures OBSTETRIC ULTRASOUND WHI US PREG UTERUS AFTER 1ST TRIMEST GESTATION Acacia Suarez APRN.[facility] [address] [place] [address] Phone: tel: fax: [facility] [address] [place] [address] Referral ID Status Reason Start Date Expiration Date V isits Requested Visits Authorized [id number] Closed Auto-Generate d Referral 02/12/2025 02/12/2026 5 1 Reason Onset Date Comments Care 02/27/2025 Reason Onset Date Comments Care 03/02/2025 Care Teams (unrecognized sec tion and content) Project Controller Relationship Specialty Start Date End Date Subhash Emerson MD PCP - General Family Medicine 03/28/18 Project Controller Relationship Specialty Start Date End Date Subhash Emerson MD PCP - General Family Medicine 03/28/18 Project Controller Relationship Specialty Start Date End Date Subhash Emerson MD PCP - General Family Medicine 03/28/18 Project Controller Relationship Specialty Start Date End Date Subhash Emerson MD PCP - General Family Medicine 03/28/18 Project Controller Relationship Specialty Start Date End Date Sbuhash Emerson MD PCP - General Family Medicine 03/28/18 Project Controller Relationship Specialty Start Date End Date Subhash Emerson MD PCP - General Family Medicine 03/28/18 Project Controller Relationship Specialty Start Date End Date Subhash Emerson MD [address] [place] [address] PCP - General Family Medicine 04/09/20 Project Controller Relationship Specialty Start Date End Date Subhash Emerson MD [address] [place] [id number] PCP - General Family Medicine 04/09/20 Project Controller Relationship Specialty Start Date End Date Subhash Emerson MD [address] [place] [id number] PCP - General Family Medicine 04/09/20 Project Controller Relationship Specialty Start Date End Date Subhash Emerson MD [address] [place] [id number] PCP - General Family Medicine 04/09/20 Project Controller Relationship Specialty Start Date End Date Subhash Emerson MD [address] [place] [id number] PCP - General Family Medicine 04/09/20 Project Controller Relationship Specialty Start Date End Date Subhash Emerson MD [address] [place] [id number] PCP - General Family Medicine 04/09/20 Project Controller Relationship Specialty Start Date End Date Subhash Emerson MD [address] [place] [id number] PCP - General Family Medicine 04/09/20 Project Controller Relationship Specialty Start Date End Date Subhash Emerson MD [address] [place] [id number] PCP - General Family Medicine 04/09/20 Project Controller Relationship Specialty Start Date End Date Subhash Emerson MD [address] [place] [address] [place] [address] PCP - General Family Medicine 04/09/20 Project Controller Relationship Specialty Start Date End Date Subhash Emerson MD [address] [place] [id number] PCP - General Family Medicine 04/09/20 Project Controller Relationship Specialty Start Date End Date Subhash Emerson MD [address] [place] [id number] PCP - General Family Medicine 04/09/20 Project Controller Relationship Specialty Start Date End Date Subhash Emerson MD [address] [place] [id number] PCP - General Family Medicine 04/09/20 Project Controller Relationship Specialty Start Date End Date Subhash Emerson MD [address] [place] [id number] PCP - General Family Medicine 04/09/20 Project Controller Relationship Specialty Start Date End Date Subhash Emerson MD [address] [place] [id number] PCP - General Family Medicine 04/09/20 <item> Privacy Markings (unrecogniz ed section and content) Section Author: Michelle Leal PROHIBITION ON REDISCLOSURE OF CONFIDENTIAL INFORMATION This notice accompanies a disclosure of information concerning a client made to you with the consent of such client. Source Comments (unrecognize d section and content) In the event this informatio n is protected by the Federal Confidentiality of Alcohol and Drug Abuse Patient Records regulations: The Federal rules restrict any use of the information to criminally investigate or prosecute any alcohol or drug abuse patient.[facility] the event this information is protected by the Federal Confidentiality of Alcohol and Drug Abuse Patient Records regulations: The Federal rules restrict any use of the information to criminally investigate or prosecute any alcohol or drug abuse patient.[facility] the event this information is protected by the Federal Confidentiality of Alcohol and Drug Abuse Patient Records regulations: The Federal rules restrict any use of the information to criminally investigate or prosecute any alcohol or drug abuse patient.[facility] the event this information is protected by the Federal Confidentiality of Alcohol and Drug Abuse Patient Records regulations: The Federal rules restrict any use of the information to criminally investigate or prosecute any alcohol or drug abuse patient.[facility] the event this information is protected by the Federal Confidentiality of Alcohol and Drug Abuse Patient Records regulations: The Federal rules restrict any use of the information to criminally investigate or prosecute any alcohol or drug abuse patient.[facility] the event this information is protected by the Federal Confidentiality of Alcohol and Drug Abuse Patient Records regulations: The Federal rules restrict any use of the information to criminally investigate or prosecute any alcohol or drug abuse patient.[facility] the event this information is protected by the Federal Confidentiality of Alcohol and Drug Abuse Patient Records regulations: The Federal rules restrict any use of the information to criminally investigate or prosecute any alcohol or drug abuse patient.[facility] the event this information is protected by the Federal Confidentiality of Alcohol and Drug Abuse Patient Records regulations: The Federal rules restrict any use of the information to criminally investigate or prosecute any alcohol or drug abuse patient.[facility] the event this information is protected by the Federal Confidentiality of Alcohol and Drug Abuse Patient Records regulations: The Federal rules restrict any use of the information to criminally investigate or prosecute any alcohol or drug abuse patient.[facility] the event this information is protected by the Federal Confidentiality of Alcohol and Drug Abuse Patient Records regulations: The Federal rules restrict any use of the information to criminally investigate or prosecute any alcohol or drug abuse patient.[facility] the event this information is protected by the Federal Confidentiality of Alcohol and Drug Abuse Patient Records regulations: The Federal rules restrict any use of the information to criminally investigate or prosecute any alcohol or drug abuse patient.[facility] the event this information is protected by the Federal Confidentiality of Alcohol and Drug Abuse Patient Records regulations: The Federal rules restrict any use of the information to criminally investigate or prosecute any alcohol or drug abuse patient.[facility] the event this information is protected by the Federal Confidentiality of Alcohol and Drug Abuse Patient Records regulations: The Federal rules restrict any use of the information to criminally investigate or prosecute any alcohol or drug abuse patient.[facility] the event this information is protected by the Federal Confidentiality of Alcohol and Drug Abuse Patient Records regulations: The Federal rules restrict any use of the information to criminally investigate or prosecute any alcohol or drug abuse patient.[facility] the event this information is protected by the Federal Confidentiality of Alcohol and Drug Abuse Patient Records regulations: The Federal rules restrict any use of the information to criminally investigate or prosecute any alcohol or drug abuse patient.[facility] the event this information is protected by the Federal Confidentiality of Alcohol and Drug Abuse Patient Records regulations: The Federal rules restrict any use of the information to criminally investigate or prosecute any alcohol or drug abuse patient.[facility] FOR RECORDS PERTAINING TO PATIENTS WHO ARE OR HAVE BEEN ENROLLED IN A CHEMICAL DEPENDENCY/SUBSTANCEABUSE PROGRAM, SOME INFORMATION MAY BE OMITTED. This clinical summary was aggregated from multiple sources. Caution should be exercised in using it in the provision of clinical care. This summary normalizes information from multiple sources, and as a consequence, information in this document may materially change the coding, format and clinical context of patient data. In addition, data may be omitted in some cases. CLINICAL DECISIONS SHOULD BE BASED ON THE PRIMARY CLINICAL RECORDS. [facility]. provides no warranty or guarantee of the accuracy or completeness of information in this document.
[2025-03-06] MEDS: Lactated Ringers 1,000 ML 50 ML IV (07:35)
[2025-03-06 08:11] LABS: Hematocrit 37.8 % (37-47); Hemoglobin 12.9 g/dL (12.0-15.0); Immature Granulocytes Count 0.040 X10^3/uL (0.0-0.0); Mean Corp Hgb Conc 34.1 g/dL (32-36); Mean Corpuscular Volume 86.5 fL (81-99); Mean Platelet Vol. 10.0 fl (6.2-12.0); NRBC Flagged by Analyzer 0 % (0-5); Platelet Count 237 K/mm3 (150-450); RBC Distribution Width CV 12.2 % (11.6-14.6); RBC Distribution Width SD 38.5 fl (35.1-43.9); Red Blood Count 4.37 M/mm3 (4.2-5.4); White Blood Count 6.5 K/mm3 (4.4-11.0)
--- NOTE | 2025-03-06 08:36 | PCM.HP.OB ---
HPI - General General Date of Admission: 03/06/25 Date of Service: 03/06/25 Chief Complaint: IUGR HPI Narrative YANN WEIR, is a 35 F who presents induction of labor for IUGR of 6% Maternal Data Information Final LADONNA: 03/20/25 Gestational age: 38 PFSH PFSH Home Medications ?Medication ?Instructions ?Recorded ?Last Taken ?Type aspirin 81 mg capsule 81 mg PO DAILY AMA 03/06/25 Unknown History vit no.95-ferrous 1 tab PO DAILY 03/06/25 Unknown History fumarate 28 mg-folic acid 800 mcg tablet () Allergy/AdvReac Type Severity Reaction Status Date / Time No Known Allergies Allergy Verified 03/06/25 07:59 Surgical History History of surgery Social History Smoking Status: Never smoker History 2 Elective abortions Hx Para 1 Spontaneous abortions Hx # Term Pregnancies Ectopic pregnancies Hx # Pregnancies Multiple births # of living children NST FHR Rate Baby A Baseline: 145 Variability:: Moderate Accelerations:: 15 x 15 Decelerations:: Variable NST Reactive:: Yes FHR Category:: Category II Uterine Activity:: occasional ROS Constitutional Constitutional: Denies fatigue, fever(s) or malaise Eyes Eyes: Denies change in vision ENT HEENT: Denies dizziness or headache(s) Cardiovascular Cardiovascular: Denies chest pain, dyspnea or lightheadedness Respiratory/Chest Respiratory/Chest: Denies cough or dyspnea Gastrointestinal Gastrointestinal: Denies change in bowel habits Genitourinary Genitourinary: Denies burning urination or genital lesions Integumentary Integumentary: Denies rash Neurologic Neurologic: Denies confusion, dizziness, headache(s), numbness or weakness Vital Signs Vital Signs Vital Signs: 03/06/25 07:30 03/06/25 07:30 03/06/25 07:30 Temperature Temperature Source Temporal Pulse Rate 78 Respiratory Rate Blood Pressure 154/92 H BP Systolic 154 BP Diastolic 92 03/06/25 07:30 03/06/25 07:30 03/06/25 07:45 Temperature 97.9 F Temperature Source Pulse Rate Respiratory Rate 16 Blood Pressure 141/99 H BP Systolic 141 BP Diastolic 99 03/06/25 07:45 03/06/25 08:16 03/06/25 08:16 Temperature Temperature Source Pulse Rate 83 81 Respiratory Rate Blood Pressure 157/97 H BP Systolic 157 BP Diastolic 97 Weight Weight: 80.467 kg Body Mass Index (BMI) 29.5 Physical Exam Const alert and no apparent distress General Appearance: cooperative HEENT normocephalic Resp normal respiratory effort Cardio regular rate GI soft to palpation GI Narrative: gravid, nontender, appropriate for gestational age Extremity no calf tenderness General Extremity: edema Skin no wounds Rashes: No rashes noted Psych activity/motor behavior normal Labs Labs Labs: Blood Type A POSITIVE Antibody Screen NEGATIVE Hct 37.8 % (37-47) Hgb 12.9 g/dL (12.0-15.0) Syphilis Total Ab Nonreactive (Nonreactive) Assessment & Plan (1) IUGR (intrauterine growth restriction): (2) 38 weeks gestation of : (3) Elevated blood pressure complicating in third trimester, antepartum:
[2025-03-06 09:09] LABS: Syphilis Antibodies Nonreactive (Nonreactive)
[2025-03-06] MEDS: 0.9% Normal Saline Single 100 ML IV.SOLN. INTRA-UTER (09:09)
--- NOTE | 2025-03-06 09:10 | PCM.PN.OB ---
Subjective Subjective reddy bulb placed. /-3 Objective Data Objective Data Vital Signs: Vital Signs Temp Pulse Resp BP 97.9 F 89 16 141/99 H 03/06/25 07:30 03/06/25 08:47 03/06/25 07:30 03/06/25 08:47 Weight: 80.467 kg Body Mass Index (BMI) 29.5 Lab / Micro Data 03/06/25 07:35 Labs: Laboratory Results - last 24 hr 03/06/25 07:35: WBC 6.5, RBC 4.37, Hgb 12.9, Hct 37.8, MCV 86.5, MCH 29.5, MCHC 34.1, RDW Std Deviation 38.5, RDW Coeff of Sunita 12.2, Plt Count 237, MPV 10.0, Immature Gran % (Auto) 0.600, Neut % (Auto) 71.0 H, Lymph % (Auto) 19.8, [place] % (Auto) 7.0, Eos % (Auto) 1.1, Baso % (Auto) 0.5, Absolute Neuts (auto) 4.6, Absolute Lymphs (auto) 1.28, Nucleated RBC % 0, Syphilis Total Ab Nonreactive, Blood Type A POSITIVE, Antibody Screen NEGATIVE Assessment & Plan (1) Elevated blood pressure complicating in third trimester, antepartum: (2) 38 weeks gestation of : (3) IUGR (intrauterine growth restriction):
[2025-03-06] MEDS: Oxytocin 15 Units/NS 250ml 15 UNITS/250 ML IV.SOLN 2 UNITS IV (09:21)
[2025-03-06 10:34] LABS: Creatinine, Urine (random) 43.30 mg/dL (28.00-217.00); Protein, Urine (Random) 26.9 mg/dL (0.0-12.0); Protein:Creat Ratio 621 mg/g CRE (0-200)
[2025-03-06 11:06] LABS: Alanine Aminotransfer ALT/SGPT 23 U/L (<=34); Estimated Creatinine Clearance 128.13 ml/min (50-250)
[2025-03-06 11:18] LABS: AST(SGOT) 24 U/L (<=31); Uric Acid 5.0 mg/dL (2.6-6.0)
--- NOTE | 2025-03-06 16:20 | PCM.PN.OB ---
Subjective Subjective AROM for clear fluid. 6/80/-2. No epidural. Cat 2 Objective Data Objective Data Vital Signs: Vital Signs Temp Pulse Resp BP Pulse Ox 98.1 F 81 16 134/92 H 95 03/06/25 16:06 03/06/25 16:07 03/06/25 16:06 03/06/25 16:07 03/06/25 16:07 Weight: 80.467 kg Body Mass Index (BMI) 29.5 Intake & Output: Intake and Output for Last 24 Hours 03/04/25 03/05/25 03/06/25 23:59 23:59 23:59 Intake Total 31.40 / 31.40 Balance 31.40 / 31.40 Lab / Micro Data 03/06/25 07:35 03/06/25 09:14 Labs: Laboratory Results - last 24 hr 03/06/25 07:35: WBC 6.5, RBC 4.37, Hgb 12.9, Hct 37.8, MCV 86.5, MCH 29.5, MCHC 34.1, RDW Std Deviation 38.5, RDW Coeff of Sunita 12.2, Plt Count 237, MPV 10.0, Immature Gran % (Auto) 0.600, Neut % (Auto) 71.0 H, Lymph % (Auto) 19.8, [facility] % (Auto) 7.0, Eos % (Auto) 1.1, Baso % (Auto) 0.5, Absolute Neuts (auto) 4.6, Absolute Lymphs (auto) 1.28, Nucleated RBC % 0, Syphilis Total Ab Nonreactive, Blood Type A POSITIVE, Antibody Screen NEGATIVE 03/06/25 09:14: Creatinine 0.63 L, Estim Creat Clear Calc 128.13, Est GFR (MDRD) Non-Af 117, Uric Acid 5.0, AST 24, ALT 23 03/06/25 09:30: U Random Total Protein 26.9 H, Urine Creatinine 43.30, Protein/Creatinin Ratio 621 H Assessment & Plan (1) Elevated blood pressure complicating in third trimester, antepartum: (2) 38 weeks gestation of : (3) IUGR (intrauterine growth restriction):
--- NOTE | 2025-03-06 17:26 | OB.VAGDELI_ITS ---
Assessment & Plan (1) (spontaneous vaginal delivery): (2) Elevated blood pressure complicating in third trimester, antepartum: (3) IUGR (intrauterine growth restriction): Maternal Data Information Final LADONNA: 03/20/25 Gestational age: 36 Vaginal Delivery Maternal Presentation Maternal Presentation: Medically Indicated Induction Type of Induction: Pitocin, Hernandez Bulb and Amniotomy Medical Reason for Induction: Compromise: list: (iugr) and Preeclampsia, eclampsia (Pre E diagnosed on admission) Vaginal Delivery Information Procedure Performed: Spontaneous Vaginal Delivery Surgeon/Practitioner: Genie Wesley Date of Procedure: 03/06/25 Pre-Procedure Diagnosis: IUGR, pre e Post-Procedure Diagnosis: Type of anesthesia: None Estimated Blood Loss: 150 cc Time of Delivery: 17:02 Findings Description of procedure: IOL for IUGR. Found to have elevated BP and proteinuria on admission. Hernandez/pit induction. AROM at 6 cm. Rapidly progressed to complete after AROM and pushed 2 times to deliver the vertex over an intact perineum. The shoulders delivered easily. The infant cried upon delivery and was placed on the maternal abdomen. The cord was clamped and cut at one minute. The placenta delivered spontaneously. There was a first degree laceration was repaired with 2-0 Vicryl after 1% lidocaine was injected. All sponge, needle and instruments counts were correct. 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
[2025-03-06] MEDS: Oxytocin 15 Units/NS 250ml 15 UNITS/250 ML IV.SOLN 83 UNITS IV (17:36)
[2025-03-06] MEDS: Lidocaine 1% (20 ml mdv) 20 ML Vial INFILT (18:32)
[2025-03-07] VITALS: BP 133/81; PULSE 77; RESP 16; TEMP 36.4; O2SAT 96
[2025-03-07 04:00] VITALS: BP 125/86; PULSE 67; RESP 16; TEMP 36.5; O2SAT 100
--- NOTE | 2025-03-07 06:39 | PN.OBGYN_ITS ---
Subjective Subjective Doing well. Ambulating and voiding without difficulty. Mild lochia. Breast feeding. Baby in SCN with hypoglycemia Objective Data Objective Data Vital Signs: Vital Signs Temp Pulse Resp BP Pulse Ox O2 Del Method 97.7 F L 67 16 125/86 H 100 Room Air 03/07/25 04:00 03/07/25 04:00 03/07/25 04:00 03/07/25 04:00 03/07/25 04:00 03/07/25 04:00 Oxygen Delivery Method Room Air Weight: 80.467 kg Body Mass Index (BMI) 29.5 Intake & Output: Intake and Output for Last 24 Hours 03/05/25 03/06/25 03/07/25 23:59 23:59 23:59 Intake Total 950.70 / 950.70 Output Total 500 / 500 Balance 450.70 / 450.70 Lab / Micro Data 03/06/25 07:35 03/06/25 09:14 Labs: Laboratory Results - last 24 hr 03/06/25 07:35: WBC 6.5, RBC 4.37, Hgb 12.9, Hct 37.8, MCV 86.5, MCH 29.5, MCHC 34.1, RDW Std Deviation 38.5, RDW Coeff of Sunita 12.2, Plt Count 237, MPV 10.0, Immature Gran % (Auto) 0.600, Neut % (Auto) 71.0 H, Lymph % (Auto) 19.8, [place] % (Auto) 7.0, Eos % (Auto) 1.1, Baso % (Auto) 0.5, Absolute Neuts (auto) 4.6, Absolute Lymphs (auto) 1.28, Nucleated RBC % 0, Syphilis Total Ab Nonreactive, Blood Type A POSITIVE, Antibody Screen NEGATIVE 03/06/25 09:14: Creatinine 0.63 L, Estim Creat Clear Calc 128.13, Est GFR (MDRD) Non-Af 117, Uric Acid 5.0, AST 24, ALT 23 03/06/25 09:30: U Random Total Protein 26.9 H, Urine Creatinine 43.30, P rotein/Creatinin Ratio 621 H ROS Constitutional Constitutional: Denies headache(s) Cardiovascular Cardiovascular: Denies chest pain or dyspnea Gastrointestinal Gastrointestinal: Denies nausea or vomiting Genitourinary Genitourinary: Denies dysuria Physical Exam Const alert, oriented x3 and no apparent distress General Appearance: cooperative and comfortable Eyes PERRL and EOMs intact bilaterally Resp normal respiratory effort GI soft to palpation and non-tender Uterus Palpation: uterus fundus firm ( below umbilicus) Extremity normal to inspection and full ROM Neuro oriented x3 and CN's II-XII intact bilaterally Psych mental status grossly normal Assessment & Plan (1) (spontaneous vaginal delivery): (2) Pre-eclampsia: QUALIFIERS: Trimester: third trimester Qualified Code(s): O14.93 - Unspecified pre-eclampsia, third trimester COMMENT: on admission PLAN: Plan Baby in SCN for blood sugar Watch BP
[2025-03-07 08:50] VITALS: BP 124/85; PULSE 75; RESP 16; TEMP 36.4; O2SAT 98
[2025-03-07 13:30] VITALS: BP 128/90; PULSE 80; RESP 14; TEMP 36.4; O2SAT 97
[2025-03-07 16:43] VITALS: BP 125/84; PULSE 75; RESP 16; TEMP 36.4; O2SAT 97
[2025-03-07 20:07] VITALS: BP 118/84; PULSE 81; RESP 16; TEMP 36.6; O2SAT 97
[2025-03-08 00:48] VITALS: BP 124/84; PULSE 74; RESP 16; TEMP 36.3; O2SAT 98
--- NOTE | 2025-03-08 06:56 | DS.PCM_ITS ---
Providers Date of Admission: 03/06/25 Primary Care Physician: Dr. Subhash Emerson MD Reason For Visit: VAGINAL DELIVERY Diagnosis Discharge Diagnosis (1) (spontaneous vaginal delivery): Status: Acute Code(s): O80 - Encounter for full-term uncomplicated delivery (2) Pre-eclampsia: Status: Acute Code(s): O14.90 - Unspecified pre-eclampsia, unspecified trimester Qualifiers: Trimester: third trimester Qualified Code(s): O14.93 - Unspecified pre- eclampsia, third trimester Plan PPD 2 BP - no severe ranges 130-80's - no medications D/C with follow up in office in 1 week for BP check Medications at Discharge Home Medications vit no.95-ferrous fumarate 28 mg-folic acid 800 mcg tablet () 1 tab PO DAILY 03/06/25 acetaminophen 500 mg tablet 1,000 mg (2 x 500 mg) PO Q6H PRN PRN Pain 1-10 Or Fever #0 tabs 03/08/25 Hospital Course Operations None Procedures None Summary of Care Provided Minutes Spent on Discharge: 15 Hospital Course: Patient had vaginal delivery. Hospital course was uneventful. Physical Exam Narrative Patient seen at bedside. Denies pain. Ambulating and voiding without difficulty. Lochia decreased. Baby remains in SCN for blood sugar levels. Patient to go to hot status. Const alert and oriented x3 General Appearance: Negative for in distress HEENT normocephalic Eyes General Eye: normal appearance of both eyes Neck General: normal visual inspection Chest Chest: symmetrical chest wall rise Resp normal respiratory effort and normal air movement Effort and Inspection: symmetric chest movement; Negative for tachypneic Auscultation: clear to auscultation bilaterally Cardio regular rate and regular rhythm Peripheral Pulses: pulses 2+ throughout GI normal to inspection, nondistended, normoactive bowel sounds Narrative: Ice to perineum OB / External & Speculum: vaginal bleeding and other Lochia decreasing Uterus Palpation: uterus fundus firm (Below U) Extremity normal to inspection, full ROM and normal capillary refill Skin no rashes or lesions noted Neuro oriented x3, CN's II-XII intact bilaterally and gait normal Psych mental status grossly normal, thought process normal and activity/motor behavior normal Weight / BMI Weight Weight: 177 lb 6.4 oz Body Mass Index (BMI) 29.5 ABG / Lab / Microbiology Data 03/06/25 07:35 03/06/25 09:14 D/C Instructions Discharge Activity: Return to Normal Activity, No Restrictions, May Drive, May Shower and May Take a Tub Bath (Warm water only. No bath salts, soaps, bubbles) May resume sexual activity in: 6-8 weeks Weight Bearing Status: Weight bearing as tolerated Call your doctor if you observe: Fever of 101 or Higher, Inability to urinate, Using more than 1 pad per hour, Shortness of breath, Dizziness, Chest pain, Calf discomfort and Uncontrolled pain DC O2, CPAP, BIPAP Needs Home O2 Discharge instructions: No DC home with Oxygen: No Please Follow Up With: [facility] Dagoberto WATTS When: 1 week in office for BP check Meaningful Use Info Meaningful Use Meaningful Use Diagnoses (Choose all that apply): None applicable Discharge Plan Admission Admit Date/Time: 03/06/25 07:13 Primary Reason for Your Visit: Labor and Delivery Attending Provider: Genie Wesley Primary Care Provider: Subhash Emerson Discharge Orders/Prescriptions Prescriptions: New acetaminophen 500 mg Tablet 1,000 mg PO Q6H PRN PRN (Reason: Pain 1-10 Or Fever) Qty: 0 0RF Continued PNV no.95-ferrous fumarate-FA [] 28 mg iron- 800 mcg tablet 1 tab PO DAILY Discontinued aspirin 81 mg capsule 81 mg PO DAILY Referrals / Follow Up: Subhash Emerson MD [Primary Care Provider] - Disposition Disposition (needs filled in before D/C Order can be placed): Home, Self Care
[2025-03-08 08:25] VITALS: BP 123/83; PULSE 92; RESP 16; TEMP 36.6; O2SAT 97
--- NOTE | 2025-03-13 13:20 | NURSING ---
Follow up phone call questions asked while in SCN with on 03/12/2025. States she is doing well, denies pain. States her bleeding is minimal. Denies any headaches, visual disturbances, or baby blues. States exclusive pumping is going well, denies any questions. Will schedule follow up with .
== END 2025-03-08 08:45 | disposition home or self-care (01) | DRG 807 ==
PROVIDERS: Admitting Provider Obstetrics & Gynecology; PCP Family Medicine; Referring Provider Obstetrics & Gynecology; Visit Provider Obstetrics & Gynecology
DX: O36.5930 Maternal care for other known or suspected poor fetal growth, third trimester, not applicable or unspecified (principal); Z37.0 Single live birth; O14.94 Unspecified pre-eclampsia, complicating childbirth; Z3A.38 38 weeks gestation of pregnancy
CPT/HCPCS: 59025; 59050; 82565; 82570; 84156; 84450; 84460; 84550; 85025; 86780; 86850; 86900; 86901; 99221; G0378